=== PATIENT | male | born 1980 ===

== ENCOUNTER 2016-08-10 03:06 | Emergency (ER) | payer MEDICAID ==
[2016-08-10 03:11] VITALS: BP 147/86; PULSE 78; RESP 18; TEMP 97.8; O2SAT 98
[2016-08-10 03:13] VITALS: BMI 28.5
[2016-08-10] MEDS ORDERED: Albuterol-Ipratrop 3 mg / 0.5 (3 ml) UD IH STA ×2 (03:20→03:33)
[2016-08-10] MEDS ORDERED: Albuterol-Ipratrop 3 mg / 0.5 (3 ml) UD ONE (03:24)
--- NOTE | 2016-08-10 03:25 | ED PDOC ---
Arrival/HPI - General Chief Complaint: Shortness Of Breath Time Seen by Provider: 08/10/16 03:14 Historian: Patient - History of Present Illness Narrative History of Present Illness (Text): 08/10/16 03:25 Maurilio Moore is a 36 year old male, whose past medical history includes asthma, who presents to the emergency department complaining of shortness of breath since yesterday. Patient states symptoms are similar in quality to previous asthma symptoms but states he ran out of his asthma medication at home. The patient denies any chest pain, abdominal pain, nausea, vomiting, diarrhea, urinary symptoms, back pain, neck pain, headache, dizziness, or any other complaints. Time/Duration: 24 hours (yesterday) Symptom Onset: Gradual Symptom Course: Unchanged Activities at Onset: Rest, Light Context: Home Past Medical History - Provider Review Nursing Documentation Reviewed: Yes - Past History Past History: No Previous - Infectious Disease Hx of Infectious Diseases: None - Tetanus Immunization Tetanus Immunization: Unknown - Cardiac Hx Cardiac Disorders: No - Pulmonary Hx Asthma: Yes Hx Bronchitis: Yes Hx Chronic Obstructive Pulmonary Disease (COPD): Yes - Neurological Hx Neurological Disorder: No - HEENT Hx HEENT Disorder: No - Renal Hx Renal Disorder: No - Endocrine/Metabolic Hx Endocrine Disorders: No - Hematological/Oncological Hx Blood Disorders: No - Integumentary Hx Dermatological Disorder: No - Musculoskeletal/Rheumatological Hx Musculoskeletal Disorders: No Hx Falls: No - Gastrointestinal Hx Gastrointestinal Disorders: No - Genitourinary/Gynecological Hx Genitourinary Disorders: No - Psychiatric Hx Psychophysiologic Disorder: No Hx Substance Use: No - Surgical History Hx Amputation: No Hx Cardiac Catheterization: No Hx Gastric Bypass Surgery: No Hx Hysterectomy: No Hx Joint Replacement: No Hx Kidney Transplant: No Hx Liver Transplant: No Hx Mastectomy: No Hx Musculoskeletal Surgery: No Hx Open Heart Surgery: No Hx Orthopedic Surgery: No Hx Splenectomy: No Hx Valve Replacement: No Other/Comment: REMOVAL OF KIDNEY STONES - Anesthesia Hx Anesthesia: No Hx Anesthesia Reactions: No Hx Malignant Hyperthermia: No - Suicidal Assessment Feels Threatened In Home Enviroment: No Family/Social History - Physician Review Nursing Documentation Reviewed: Yes Family/Social History: No Known Family HX Smoking Status: Former Smoker Hx Alcohol Use: No Hx Substance Use: No Allergies/Home Meds Allergies/Adverse Reactions: Allergies No Known Allergies Allergy (Verified 05/20/16 19:41) Home Medications: Home Meds Medication Instructions Recorded Confirmed Budesonide/Formoterol Fumarate 1 aer IH DAILY 05/21/16 08/10/16 [Symbicort 160-4.5 Mcg Inhaler] Fluticasone/Salmeterol 100/50 1 dsk IH DAILY 05/21/16 08/10/16 [Advair Diskus 100/50] Prednisone [Deltasone] 1 tab PO DAILY PRN 08/10/16 08/10/16 Review of Systems - Physician Review All systems were reviewed & negative as marked: Yes - Review of Systems Constitutional: Normal Eyes: Normal ENT: Normal Respiratory: SOB. absent: Cough Cardiovascular: Normal. absent: Chest Pain Gastrointestinal: Normal. absent: Abdominal Pain, Diarrhea, Nausea, Vomiting Genitourinary Male: Normal. absent: Dysuria, Frequency, Hematuria, Urinary Output Changes Musculoskeletal: Normal. absent: Back Pain, Neck Pain Skin: Normal. absent: Rash Neurological: Normal. absent: Headache, Dizziness Endocrine: Normal Hemo/Lymphatic: Normal Psychiatric: Normal Physical Exam Vital Signs Reviewed: Yes Vital Signs Temp Pulse Resp BP Pulse Ox 08/10/16 03:10 97.8 F 78 18 147/86 98 Temperature: Afebrile Blood Pressure: Normal Pulse: Regular Respiratory Rate: Normal Appearance: Positive for: Well-Appearing, Non-Toxic, Comfortable Pain Distress: None Mental Status: Positive for: Alert and Oriented X 3 - Systems Exam Head: Present: Atraumatic, Normocephalic Pupils: Present: PERRL Extroacular Muscles: Present: EOMI Conjunctiva: Present: Normal Mouth: Present: Moist Mucous Membranes Neck: Present: Normal Range of Motion Respiratory/Chest: Present: Wheezes (Wheezing bilaterally). No: Respiratory Distress, Accessory Muscle Use Cardiovascular: Present: Regular Rate and Rhythm, Normal S1, S2. No: Murmurs Abdomen: Present: Normal Bowel Sounds. No: Tenderness, Distention, Peritoneal Signs Upper Extremity: Present: Normal Inspection. No: Cyanosis, Edema Lower Extremity: Present: Normal Inspection. No: Edema Neurological: Present: GCS=15, CN II-XII Intact, Speech Normal Skin: Present: Warm, Dry, Normal Color. No: Rashes Psychiatric: Present: Alert, Oriented x 3, Normal Insight, Normal Concentration Medical Decision Making ED Course and Treatment: 08/10/16 03:25 Impression: 36 year old male complaining of shortness of breath since yesterday. Differential Diagnosis included but are not limited to: asthma Plan: -- Duoneb -- Prednisone -- Reassess and disposition Prior Visits: Notes and results from previous visits were reviewed. Progress Notes: 08/10/16 04:20 Reviewed EKG, NSR at [address]-segment elevations or depressions, no T-wave inversions, normal intervals. 08/10/16 05:02 On reevaluation the patient feels better and is in no acute distress. I have discussed the results and plan with the patient, who expresses understanding. Patient given the opportunity to ask question, all questions were answered and there is agreement with the plan to discharge the patient home. Patient is stable for discharge. Patient was instructed to follow up with physician/clinic in 1-2 days or return if symptoms persist/worsen or new concerning symptoms arise. - Medication Orders Current Medication Orders: Discontinued Medications Albuterol/Ipratropium (Duoneb 3 Mg/0.5 Mg (3 Ml) Ud) Confirm Administered Dose 3 ml .ROUTE .STK-MED ONE Stop: 08/10/16 03:25 Albuterol/Ipratropium (Duoneb 3 Mg/0.5 Mg (3 Ml) Ud) 3 ml IH ONCE STA Stop: 08/10/16 03:21 Last Admin: 08/10/16 03:20 Dose: 3 ml Albuterol/Ipratropium (Duoneb 3 Mg/0.5 Mg (3 Ml) Ud) 3 ml IH ONCE STA Stop: 08/10/16 03:34 Prednisone (Prednisone Tab) 60 mg PO ONCE STA Stop: 08/10/16 03:46 - Scribe Statement The provider has reviewed the documentation as recorded by the Lacy He Provider Attestation: All medical record entries made by the Lacy were at my direction and personally dictated by me. I have reviewed the chart and agree that the record accurately reflects my personal performance of the history, physical exam, medical decision making, and the department course for this patient. I have also personally directed, reviewed, and agree with the discharge instructions and disposition. Disposition/Present on Arrival - Present on Arrival Any Indicators Present on Arrival: No History of DVT/PE: No History of Uncontrolled Diabetes: No Urinary Catheter: No History of Decub. Ulcer: No History Surgical Site Infection Following: None - Disposition Have Diagnosis and Disposition been Completed?: Yes Diagnosis: Exacerbation of asthma Disposition: HOME/ ROUTINE Disposition Time: 05:34 Patient Problems: Current Active Problems Problem Status Onset Exacerbation of asthma Acute Condition: GOOD Discharge Instructions (ExitCare): Asthma (ED) Additional Instructions: Take meds as prescribed/follow up with your doctor Prescriptions: Albuterol 0.083% [Albuterol 0.083% Inhal Kianna (2.5 mg/3 ml) UD] 3 ml IH Q4 PRN # 1 pkg PRN Reason: Wheezing predniSONE [Prednisone] 40 mg PO DAILY #10 tab Albuterol HFA [Ventolin HFA 90 mcg/actuation (8 g)] 2 puff IH [id number] PRN #1 puff PRN Reason: Wheezing Cetirizine HCl [Zyrtec] 10 mg PO DAILY PRN #24 tab.rapdis PRN Reason: Allergy Symptoms
--- NOTE | 2016-08-11 15:14 | CARD ---
APPROVED REPORT EKG Measurement Heart [id number] <Conclusion> Normal sinus rhythm with sinus arrhythmia Normal ECG
== END 2016-08-11 07:51 | disposition home or self-care (01) ==
LOC: ED 03:06
DX: J45.901 Unspecified asthma with (acute) exacerbation (principal); Z87.891 Personal history of nicotine dependence

== ENCOUNTER 2016-09-16 07:59 | Emergency (ER) | payer MEDICAID ==
[2016-09-16 08:09] VITALS: BMI 27.3
[2016-09-16 08:27] VITALS: RESP 18; TEMP 98.1
[2016-09-16] MEDS: Albuterol-Ipratrop 3 mg / 0.5 (3 ml) UD IH STA ×2 (08:34→08:35)
--- NOTE | 2016-09-16 08:39 | ED PDOC ---
Arrival/HPI - General Chief Complaint: Shortness Of Breath Time Seen by Provider: 09/16/16 08:26 Historian: Patient - Critical Care Critical Care Minutes: 30 minutes - History of Present Illness Narrative History of Present Illness (Text): 09/16/16 08:40 A 36 year old female, whose past medical history includes asthma, presents to the emergency department complaining of shortness of breath. Patient reports feels identical to previous asthma exacerbating symptoms. Patient denies chest pain, upper respiratory infection, fevers, chills or any other complaints at this time. Symptom Onset: Sudden Symptom Course: Unchanged Activities at Onset: Rest Context: Home Associated Symptoms (Text): none Past Medical History - Provider Review Nursing Documentation Reviewed: Yes - Past History Past History: No Previous - Infectious Disease Hx of Infectious Diseases: None - Tetanus Immunization Tetanus Immunization: Unknown - Cardiac Hx Cardiac Disorders: No - Pulmonary Hx Asthma: Yes Hx Bronchitis: Yes Hx Chronic Obstructive Pulmonary Disease (COPD): Yes - Neurological Hx Neurological Disorder: No - HEENT Hx HEENT Disorder: No - Renal Hx Renal Disorder: No - Endocrine/Metabolic Hx Endocrine Disorders: No - Hematological/Oncological Hx Blood Disorders: No - Integumentary Hx Dermatological Disorder: No - Musculoskeletal/Rheumatological Hx Musculoskeletal Disorders: No Hx Falls: No - Gastrointestinal Hx Gastrointestinal Disorders: No - Genitourinary/Gynecological Hx Genitourinary Disorders: No - Psychiatric Hx Psychophysiologic Disorder: No Hx Substance Use: No - Surgical History Hx Amputation: No Hx Cardiac Catheterization: No Hx Gastric Bypass Surgery: No Hx Hysterectomy: No Hx Joint Replacement: No Hx Kidney Transplant: No Hx Liver Transplant: No Hx Mastectomy: No Hx Musculoskeletal Surgery: No Hx Open Heart Surgery: No Hx Orthopedic Surgery: No Hx Splenectomy: No Hx Valve Replacement: No Other/Comment: REMOVAL OF KIDNEY STONES - Anesthesia Hx Anesthesia: No Hx Anesthesia Reactions: No Hx Malignant Hyperthermia: No - Suicidal Assessment Feels Threatened In Home Enviroment: No Family/Social History - Physician Review Nursing Documentation Reviewed: Yes Family/Social History: No Known Family HX Smoking Status: Former Smoker Hx Alcohol Use: Yes Frequency of alcohol use: Socially Hx Substance Use: No Allergies/Home Meds Allergies/Adverse Reactions: Allergies No Known Allergies Allergy (Verified 05/20/16 19:41) Home Medications: Home Meds Medication Instructions Recorded Confirmed Budesonide/Formoterol Fumarate 1 aer IH DAILY 05/21/16 09/16/16 [Symbicort 160-4.5 Mcg Inhaler] Fluticasone/Salmeterol 100/50 1 dsk IH DAILY 05/21/16 09/16/16 [Advair Diskus 100/50] Prednisone [Deltasone] 1 tab PO DAILY PRN 08/10/16 09/16/16 Review of Systems - Physician Review All systems were reviewed & negative as marked: Yes Physical Exam - Physical Exam Narrative Physical Exam (Text): 09/16/16 08:37- Review of Systems Constitutional: Normal. absent: Fatigue, Weight Change, Fevers, chills Eyes: Normal ENT: Normal Respiratory: Present: shortness of breath absent: Cough, Sputum Cardiovascular: Normal absent: Chest pain, Palpitations, Syncope Gastrointestinal: Normal absent: Abdominal pain, Diarrhea, Nausea, Vomiting Genitourinary: Normal. absent: Dysuria, Frequency, Hematuria Musculoskeletal: Normal. absent: Arthralgias, Back Pain, Neck Pain Skin: Normal Neurological: Normal absent: Focal Weakness Endocrine: Normal Hemo/Lymphatic: Normal Psychiatric: Normal - Physical exam Patient appears age appropriate, speaking full sentences without difficulty - Systems Exam Head: Present: Atraumatic, Normocephalic Pupils: Present: PERRL Extraocular Muscles: Present: EOMI Conjunctiva: Present: Normal Mouth: Present: Moist Mucous Membranes Neck: Present: Normal Range of Motion. No: MIDLINE TENDERNESS, Paraspinal Tenderness Respiratory/Chest: Present: Expiratory wheezing No: Accessory Muscle Use, Tachypnic Cardiovascular: Present: Regular Rate and Rhythm, Normal S1, S2, Peripheral Pulses Present. No: Murmurs Abdomen: Present: Normal Bowel Sounds, No: Tenderness, Peritoneal Signs, Rebound, Guarding, Distention Back: Present: Normal Inspection. No: Midline Tenderness, Paraspinal Tenderness Upper Extremity: Present: Normal Inspection. No: Cyanosis, Edema Lower Extremity: Present: Normal Inspection. No: Edema Neurological: Present: GCS=15, Speech Normal, cranial nerves II through XII fully intact with no cerebellar abnormality, neuro-sensory fully intact. No focal neurological deficits. Skin: Present: Warm, Dry, Normal Color. No: Rashes Lymphatic: Present: OX3, NI, NC Psychiatric: Present: Alert, Oriented x 3, Normal Insight, Normal Concentration Vital Signs Reviewed: Yes Vital Signs Temp Pulse Resp BP Pulse Ox 09/16/16 10:18 77 18 119/64 100 09/16/16 08:23 98.1 F 82 18 118/86 99 Temperature: Afebrile Blood Pressure: Normal Pulse: Regular Respiratory Rate: Normal Appearance: Positive for: Well-Appearing, Non-Toxic, Comfortable Pain Distress: None Mental Status: Positive for: Alert and Oriented X 3 Medical Decision Making ED Course and Treatment: 09/16/16 08:35 Impression: A 36 year old male with shortness of breath. On physical exam, expiratory wheezing on examination Differential Diagnosis included but are not limited to: asthma Plan: -- Duoneb, Predisone -- Reassess and disposition Prior Visits: Notes and results from previous visits were reviewed. Patient last reported to the emergency department on 08/10/16 for evaluation of shortness of breath. Progress Notes: 09/16/16 10:02 on reevaluation, lungs clear to auscultation bilaterally. No shortness of breath or wheezing. 09/16/16 10:27 Patient states that he feels comfortable being discharged home with outpatient follow-up. Patient states that he has an inhaler at home and also has a nebulizer refills. Will be given prednisone prescription. Patient's lungs clear to auscultation bilaterally on reexamination, patient has no cough, patient has no fever. No indication to discharge on antibiotics at this time. Patient again states that he feels comfortable being discharged home at this time Pt states he understands to return to the ER right away for new or worsening symptoms or for inability to f/u with PMD or specialist as instructed. Patient states that he fully agrees with and understands discharge instructions. States that he agrees with the plan and disposition. Verbalized and repeated discharge instructions and plan. I have given the patient opportunity to ask any additional questions. - Medication Orders Current Medication Orders: Discontinued Medications Albuterol/Ipratropium (Duoneb 3 Mg/0.5 Mg (3 Ml) Ud) 3 ml IH STAT STA Stop: 09/16/16 08:33 Last Admin: 09/16/16 08:35 Dose: 3 ml Prednisone (Prednisone Tab) 60 mg PO STAT ONE Stop: 09/16/16 08:33 Last Admin: 09/16/16 09:15 Dose: 60 mg - Scribe Statement The provider has reviewed the documentation as recorded by the Lacy Klein Provider Scribe Attestation: All medical record entries made by the Scribe were at my direction and personally dictated by me. I have reviewed the chart and agree that the record accurately reflects my personal performance of the history, physical exam, medical decision making, and the department course for this patient. I have also personally directed, reviewed, and agree with the discharge instructions and disposition. Disposition/Present on Arrival - Present on Arrival Any Indicators Present on Arrival: No History of DVT/PE: No History of Uncontrolled Diabetes: No Urinary Catheter: No History of Decub. Ulcer: No History Surgical Site Infection Following: None - Disposition Have Diagnosis and Disposition been Completed?: Yes Diagnosis: Exacerbation of asthma Disposition: HOME/ ROUTINE Disposition Time: 10:29 Patient Plan: Discharge Patient Problems: Current Active Problems Problem Status Onset Exacerbation of asthma Acute Condition: GOOD Discharge Instructions (ExitCare): Asthma (ED) Additional Instructions: PLEASE RETURN TO THE EMERGENCY DEPARTMENT FOR NEW OR WORSENING SYMPTOMS. RETURN RIGHT AWAY IF YOU CANNOT FOLLOW UP WITH YOUR PRIMARY CARE DOCTOR, CLINIC, OR SPECIALIST IN 1-2 DAYS. Prescriptions: Albuterol HFA [Ventolin HFA 90 mcg/actuation (8 g)] 2 puff IH [id number] PRN #1 inhaler PRN Reason: Shortness Of Breath Albuterol HFA [Ventolin HFA 90 mcg/actuation (8 g)] 2 puff IH Q4 #1 puff predniSONE [predniSONE Tab] 60 mg PO DAILY #12 tab Referrals: Blas Lindsey MD [Primary Care Provider] - Follow up with primary Forms: WORK NOTE
[2016-09-16 10:18] VITALS: BP 119/64; PULSE 77; O2SAT 100
== END 2016-09-16 11:07 | disposition home or self-care (01) ==
LOC: ED 07:59
DX: J45.901 Unspecified asthma with (acute) exacerbation (principal); Z87.891 Personal history of nicotine dependence

== ENCOUNTER 2016-12-19 11:51 | Emergency (ER) | payer MEDICAID ==
[2016-12-19 11:55] VITALS: BMI 29.3
[2016-12-19 11:58] VITALS: TEMP 99.1
--- NOTE | 2016-12-19 13:14 | RAD ---
PROCEDURE: Radiographs of the Lumbar Spine. HISTORY: r/o fx COMPARISON: No prior. FINDINGS: BONES: Normal alignment. No listhesis. No fracture. DISC SPACES: Unremarkable. OTHER FINDINGS: None. IMPRESSION: Unremarkable radiographs of the lumbar spine.
[2016-12-19 14:02] VITALS: BP 120/78; PULSE 73; RESP 17; O2SAT 100
--- NOTE | 2016-12-19 15:41 | ED PDOC ---
Arrival/HPI - General Chief Complaint: Back Pain Time Seen by Provider: 12/19/16 12:01 Historian: Patient - History of Present Illness Narrative History of Present Illness (Text): 12/19/16 12:19 A 36 year old male, whose past medical history includes asthma, presents to the emergency department complaining of lower back pain since yesterday. Patient reports he was heavy lifting, causing the back pain. He states having taken Tylenol, but has had no relief. Patient denies of any urinary output changes or any other complaints. No PMD Time/Duration: 24 hours Symptom Onset: Sudden Symptom Course: Unchanged Past Medical History - Provider Review Nursing Documentation Reviewed: Yes - Past History Past History: No Previous - Infectious Disease Hx of Infectious Diseases: None - Tetanus Immunization Tetanus Immunization: Unknown - Cardiac Hx Cardiac Disorders: No - Pulmonary Hx Asthma: Yes Hx Bronchitis: Yes Hx Chronic Obstructive Pulmonary Disease (COPD): Yes - Neurological Hx Neurological Disorder: No - HEENT Hx HEENT Disorder: No - Renal Hx Renal Disorder: No - Endocrine/Metabolic Hx Endocrine Disorders: No - Hematological/Oncological Hx Blood Disorders: No - Integumentary Hx Dermatological Disorder: No - Musculoskeletal/Rheumatological Hx Musculoskeletal Disorders: No Hx Falls: No - Gastrointestinal Hx Gastrointestinal Disorders: No - Genitourinary/Gynecological Hx Genitourinary Disorders: No - Psychiatric Hx Psychophysiologic Disorder: No Hx Substance Use: No - Surgical History Hx Amputation: No Hx Cardiac Catheterization: No Hx Gastric Bypass Surgery: No Hx Hysterectomy: No Hx Joint Replacement: No Hx Kidney Transplant: No Hx Liver Transplant: No Hx Mastectomy: No Hx Musculoskeletal Surgery: No Hx Open Heart Surgery: No Hx Orthopedic Surgery: No Hx Splenectomy: No Hx Valve Replacement: No Other/Comment: REMOVAL OF KIDNEY STONES - Anesthesia Hx Anesthesia: No Hx Anesthesia Reactions: No Hx Malignant Hyperthermia: No - Suicidal Assessment Feels Threatened In Home Enviroment: No Family/Social History - Physician Review Nursing Documentation Reviewed: Yes Family/Social History: No Known Family HX Smoking Status: Former Smoker Hx Alcohol Use: Yes Hx Substance Use: No Allergies/Home Meds Allergies/Adverse Reactions: Allergies No Known Allergies Allergy (Verified 05/20/16 19:41) Review of Systems - Physician Review All systems were reviewed & negative as marked: Yes - Review of Systems Genitourinary Male: absent: Urinary Output Changes Musculoskeletal: Back Pain (lower back pain) Physical Exam Vital Signs Reviewed: Yes Vital Signs Temp Pulse Resp BP Pulse Ox 12/19/16 14:01 73 17 120/78 100 12/19/16 11:51 99.1 F 77 18 122/80 97 Temperature: Afebrile Blood Pressure: Normal Pulse: Regular Respiratory Rate: Normal Appearance: Positive for: Well-Appearing, Non-Toxic, Comfortable Pain Distress: None Mental Status: Positive for: Alert and Oriented X 3 - Systems Exam Head: Present: Atraumatic, Normocephalic Pupils: Present: PERRL Extroacular Muscles: Present: EOMI Conjunctiva: Present: Normal Mouth: Present: Moist Mucous Membranes Neck: Present: Normal Range of Motion Respiratory/Chest: Present: Clear to Auscultation, Good Air Exchange. No: Respiratory Distress, Accessory Muscle Use Cardiovascular: Present: Regular Rate and Rhythm, Normal S1, S2. No: Murmurs Abdomen: Present: Normal Bowel Sounds. No: Tenderness, Distention, Peritoneal Signs Back: Present: Normal Inspection Upper Extremity: Present: Normal Inspection. No: Cyanosis, Edema Lower Extremity: Present: Normal Inspection. No: Edema Neurological: Present: GCS=15, CN II-XII Intact, Speech Normal Skin: Present: Warm, Dry, Normal Color. No: Rashes Psychiatric: Present: Alert, Oriented x 3, Normal Insight, Normal Concentration Medical Decision Making ED Course and Treatment: 12/19/16 12:25 Impression: 36 year old male with lower back pain. Physical exam is unremarkable. Plan: -- Lumbar Spine X-Ray -- Flexeril -- Motrin -- Reassess and disposition Prior Visits: Notes and results from previous visits were reviewed. On 09/16/2016 patient came in complaining of shortness of breath. Patient was discharged home. Progress Notes: 12/19/2016 13:12 Lumbar Spine X-Ray FINDINGS: BONES: Normal alignment. No listhesis. No fracture. DISC SPACES: Unremarkable. OTHER FINDINGS: None. IMPRESSION: Unremarkable radiographs of the lumbar spine. Dictator : Chun Rahman MD 12/19/16 14:04 On re-evaluation, patient feels better and is in no acute distress. I have discussed the results and plan with the patient, who expresses understanding. Patient in agreement with plan to be discharged home. Patient is stable for discharge. Patient was instructed to follow up with PMD or return if symptoms worsen or new concerning symptoms arise. - RAD Interpretation Radiology Orders: 12/19/16 12:25 LS SPINE WITH OBL > 18 YRS OLD [RAD] Stat - Medication Orders Current Medication Orders: Discontinued Medications Cyclobenzaprine HCl (Flexeril) 10 mg PO STAT STA Stop: 12/19/16 12:26 Last Admin: 12/19/16 12:44 Dose: 10 mg Ibuprofen (Motrin Tab) 600 mg PO STAT STA Stop: 12/19/16 12:26 Last Admin: 12/19/16 12:45 Dose: 600 mg - Scribe Statement The provider has reviewed the documentation as recorded by the Lacy Easton Provider Scribe Attestation: All medical record entries made by the Leoncioibsalomon were at my direction and personally dictated by me. I have reviewed the chart and agree that the record accurately reflects my personal performance of the history, physical exam, medical decision making, and the department course for this patient. I have also personally directed, reviewed, and agree with the discharge instructions and disposition. Disposition/Present on Arrival - Present on Arrival Any Indicators Present on Arrival: No History of DVT/PE: No History of Uncontrolled Diabetes: No Urinary Catheter: No History of Decub. Ulcer: No History Surgical Site Infection Following: None - Disposition Have Diagnosis and Disposition been Completed?: Yes Diagnosis: Acute low back pain Disposition: HOME/ ROUTINE Disposition Time: 13:10 Condition: IMPROVED Discharge Instructions (ExitCare): Acute Low Back Pain (ED) Additional Instructions: Thank you for letting us take care of you today. Your provider was Dr. Lawson. You were treated for low back pain. The emergency medical care you received today was directed at your acute symptoms. If you were prescribed any medication, please fill it and take as directed. It may take several days for your symptoms to resolve. Return to the Emergency Department if your symptoms worsen, do not improve, or if you have any other problems. Please contact your doctor or call one of the physicians/clinics you have been referred to that are listed on the Patient Visit Information form that is included in your discharge packet. Bring any paperwork you were given at discharge with you along with any medications you are taking to your follow up visit. Our treatment cannot replace ongoing medical care by a primary care provider (PCP) outside of the emergency department. Thank you for allowing the [facility] team to be part of your care today. Follow up with your doctor in 2-3 days for re-evaluation and further management. Prescriptions: Cyclobenzaprine [Cyclobenzaprine HCl] 10 mg PO Q8 PRN #20 tab PRN Reason: Muscle Spasm Ibuprofen [Motrin] 600 mg PO Q6 PRN #20 tab PRN Reason: Pain, Moderate (4-7) Referrals: PCP,NO [Primary Care Provider] - Follow up with primary Forms: [employer] (Malay)
== END 2016-12-19 14:04 | disposition home or self-care (01) ==
LOC: ED 11:51
DX: M54.5 Low back pain (principal)

== ENCOUNTER 2017-01-07 19:46 | Observation (INO) | payer MEDICAID ==
[2017-01-07 19:46] VITALS: BMI 29.3
[2017-01-07] MEDS ORDERED: Albuterol 0.5% Inhal Sol (5 mg/ ml) 20 ml IH STA (20:26)
[2017-01-07] MEDS ORDERED: Albuterol 0.5% Inhal Sol (2.5 mg/0.5 ml) UD IH STA (20:48)
[2017-01-07] MEDS ORDERED: Albuterol 0.083% Inhal Sol (2.5 mg/3 mL) UD ONE (20:51)
--- NOTE | 2017-01-07 21:10 | ED PDOC ---
Arrival/HPI - General Chief Complaint: Respiratory Distress Time Seen by Provider: 01/07/17 19:52 Historian: Patient - History of Present Illness Narrative History of Present Illness (Text): 01/07/17 21:07 36-year-old male with a long history of chronic asthma. He presents with 2 days of severe shortness of breath and wheezing. States she's been using his inhaler quite frequently multiple times a day in fact he's gone through approximately 90 doses since refilling his prescription on Thursday. His last admission for asthma was in September of this year. has no history of intubations. He does use an Advair and at times uses a steroid burst at home. He does not smoke. He's had some chills but no fever no nausea or vomiting. 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 He does not have a wooden frame builder currently only seen one in the past he is trying to follow up with one. Time/Duration: Other (2 days) Symptom Onset: Sudden Symptom Course: Unchanged Activities at Onset: Rest Context: Home Past Medical History - Provider Review Nursing Documentation Reviewed: Yes - Travel History Have you recently traveled outside [place] w/in the past 3 mons?: No - Past History Past History: No Previous - Infectious Disease Hx of Infectious Diseases: None - Tetanus Immunization Tetanus Immunization: Unknown - Cardiac Hx Cardiac Disorders: No - Pulmonary Hx Asthma: Yes Hx Bronchitis: Yes Hx Chronic Obstructive Pulmonary Disease (COPD): Yes - Neurological Hx Neurological Disorder: No - HEENT Hx HEENT Disorder: No - Renal Hx Renal Disorder: No - Endocrine/Metabolic Hx Endocrine Disorders: No - Hematological/Oncological Hx Blood Disorders: No - Integumentary Hx Dermatological Disorder: No - Musculoskeletal/Rheumatological Hx Musculoskeletal Disorders: No Hx Falls: No - Gastrointestinal Hx Gastrointestinal Disorders: No - Genitourinary/Gynecological Hx Genitourinary Disorders: No - Psychiatric Hx Psychophysiologic Disorder: No Hx Substance Use: No - Surgical History Hx Amputation: No Hx Cardiac Catheterization: No Hx Gastric Bypass Surgery: No Hx Hysterectomy: No Hx Joint Replacement: No Hx Kidney Transplant: No Hx Liver Transplant: No Hx Mastectomy: No Hx Musculoskeletal Surgery: No Hx Open Heart Surgery: No Hx Orthopedic Surgery: No Hx Splenectomy: No Hx Valve Replacement: No Other/Comment: REMOVAL OF KIDNEY STONES - Anesthesia Hx Anesthesia: No Hx Anesthesia Reactions: No Hx Malignant Hyperthermia: No - Suicidal Assessment Feels Threatened In Home Enviroment: No Family/Social History - Physician Review Nursing Documentation Reviewed: Yes Family/Social History: Unknown Family HX Smoking Status: Former Smoker Hx Alcohol Use: Yes Hx Substance Use: No Allergies/Home Meds Allergies/Adverse Reactions: Allergies No Known Allergies Allergy (Verified 05/20/16 19:41) Review of Systems - Review of Systems Constitutional: absent: Fevers, Night Sweats ENT: Rhinorrhea Respiratory: SOB, Cough, Sputum, Wheezing Cardiovascular: JUÁREZ. absent: Chest Pain Gastrointestinal: Normal Musculoskeletal: Normal Skin: Normal Neurological: Normal Physical Exam Vital Signs Reviewed: Yes Vital Signs Temp Pulse Resp BP Pulse Ox 01/07/17 23:35 82 18 126/74 100 01/07/17 19:53 98.2 F 103 H 20 129/78 96 01/07/17 19:46 24 Temperature: Afebrile Blood Pressure: Normal Pulse: Tachycardic Respiratory Rate: Tachypneic Appearance: Positive for: Well-Appearing Pain Distress: None Mental Status: Positive for: Alert and Oriented X 3 - Systems Exam Head: Present: Atraumatic Pupils: Present: PERRL Extroacular Muscles: Present: EOMI Conjunctiva: Present: Normal Mouth: Present: Moist Mucous Membranes Nose (External): Present: Atraumatic Nose (Internal): Present: Normal Inspection, Rhinorrhea Neck: Present: Normal Range of Motion, Lymphadenopathy Respiratory/Chest: Present: Wheezes, Decreased Breath Sounds Cardiovascular: Present: Regular Rate and Rhythm, Normal S1, S2 Back: Present: Normal Inspection Lower Extremity: Present: Normal Inspection Neurological: Present: GCS=15, Motor Func Grossly Intact Skin: Present: Warm, Dry, Rashes Psychiatric: Present: Alert, Oriented x 3 Medical Decision Making ED Course and Treatment: 01/07/17 21:11 Impression: 36-year-old male long history of asthma presenting for asthma exacerbation. Plan: -- Albuterol, Zithromax, Prednisone -- Reassess and disposition Prior Visits: Notes and results from previous visits were reviewed. Patient last reported to the emergency department on 12/19/16 for evaluation of lower back pain. Progress Notes: 01/07/17 22:40 Patient has a history of severe asthma, utilizing alberteol. Patient will be admitted to hospital for asthmatic bronchitis for high risk of decompensation. Patient symptoms slightly improved after 7.5 mg nebulizer treatment and 60 prednisone, but not resolved. I have discussed the results and plan with the patient, who expresses understanding. Patient given the opportunity to ask question, all questions were answered and there is agreement with the plan to be admitted to the hospital. - RAD Interpretation Radiology Orders: 01/07/17 22:48 CHEST TWO VIEWS (PA/LAT) [RAD] Stat - Medication Orders Current Medication Orders: Albuterol Sulfate (Albuterol 0.5% Inhal Kianna (2.5 Mg/0.5 Ml) Ud) 2.5 mg IH [id number] [facility] Last Admin: 01/08/17 01:34 Dose: 2.5 mg Albuterol Sulfate (Albuterol 0.5% Inhal Kianna (2.5 Mg/0.5 Ml) Ud) 2.5 mg IH Q2 PRN PRN Reason: Shortness of Breath Famotidine (Pepcid) 20 mg PO 1000,2200 RACHEAL Sodium Chloride (Sodium Chloride 0.9%) 1,000 mls @ 100 mls/hr IV .Q10H [facility] Last Admin: 01/08/17 01:52 Dose: 100 mls/hr eMAR Start Stop Document 01/08/17 01:52 [facility] (Rec: 01/08/17 01:53 [id number]) Intravenous Solution Start Date 01/08/17 Start Time 01:52 Azithromycin (Zithromax 500mg In Ns) 500 mg in 250 mls @ 167 mls/hr IVPB DAILY RACHEAL PRN Reason: Protocol Methylprednisolone (Solu-Medrol) 60 mg IVP Q8 RACHEAL Ondansetron HCl (Zofran Tab) 4 mg PO Q6 PRN PRN Reason: Nausea/Vomiting Discontinued Medications Albuterol Sulfate (Albuterol 0.5% Inhal Kianna (2.5 Mg/0.5 Ml) Ud) 2.5 mg IH STAT STA Stop: 01/07/17 20:49 Last Admin: 01/07/17 20:51 Dose: 2.5 mg Albuterol/Ipratropium (Duoneb 3 Mg/0.5 Mg (3 Ml) Ud) 3 ml IH Q15M RACHEAL Stop: 01/08/17 01:16 Azithromycin (Zithromax) 500 mg PO STAT STA PRN Reason: Protocol Stop: 01/07/17 20:32 Last Admin: 01/07/17 20:52 Dose: 500 mg Sodium Chloride (Sodium Chloride 0.9%) 1,000 mls @ 999 mls/hr IV .Q1H1M STA Stop: 01/07/17 23:31 Last Admin: 01/07/17 23:16 Dose: 999 mls/hr eMAR Start Stop Document 01/07/17 23:16 RALPH (Rec: 01/07/17 23:16 [id number]) Intravenous Solution Start Date 01/07/17 Start Time 23:16 End Date 01/08/17 End time 23:16 Total Infusion Time 1440 Magnesium Sulfate/Dextrose (Magnesium Sulfate 1 Gm/100 Ml D5w) 1 gm in 100 mls @ 100 mls/hr IVPB ONCE ONE Stop: 01/07/17 23:30 Last Admin: 01/07/17 23:15 Dose: 100 mls/hr eMAR Start Stop Document 01/07/17 23:15 RALPH (Rec: 01/07/17 23:15 RALPH [id number]) Intravenous Solution Start Date 01/07/17 Start Time 23:15 End Date 01/08/17 End time 00:15 Total Infusion Time 60 Loratadine (Claritin) 10 mg PO STAT STA Stop: 01/08/17 00:30 Last Admin: 01/08/17 01:58 Dose: 10 mg Prednisone (Prednisone Tab) 60 mg PO STAT ONE Stop: 01/07/17 20:22 Last Admin: 01/07/17 20:51 Dose: 60 mg Disposition/Present on Arrival - Present on Arrival Any Indicators Present on Arrival: No History of DVT/PE: No History of Uncontrolled Diabetes: No Urinary Catheter: No History of Decub. Ulcer: No History Surgical Site Infection Following: None - Disposition Have Diagnosis and Disposition been Completed?: Yes Diagnosis: Asthmatic bronchitis with acute exacerbation, Exacerbation of asthma, Acute upper respiratory infection Disposition: HOSPITALIZED Disposition Time: 23:00 Patient Plan: Observation Patient Problems: Current Active Problems Problem Status Onset Acute upper respiratory infection Acute Asthmatic bronchitis with acute exacerbation Acute Exacerbation of asthma Acute Condition: GUARDED
[2017-01-07] MEDS ORDERED: Magnesium Sulfate 1 gm in D5W 1 GM/100 ML BAG IVPB ONE (22:31)
[2017-01-07] MEDS ORDERED: Sodium Chloride 0.9% 1,000 ML IV STA (22:31)
[2017-01-07 23:29] LABS: BASO # 0.02 K/mm3 (0.0-2.0); BASO % 0.1 % (0.0-3.0); EOS # 0.3 (0.0-0.7); EOS % 1.9 % (1.5-5.0); GRAN # 11.94 (1.4-6.5); GRAN % 85.2 % (50.0-68.0); HEMATOCRIT 40.9 % (42.0-52.0); LYMPH # 1.2 (1.2-3.4); LYMPH % 8.5 % (22.0-35.0); MEAN CELL VOLUME 81.8 fl (80.0-105.0); MEAN CORPUSCULAR HEMOGLOBIN 28.4 pg (25.0-35.0); MEAN CORPUSCULAR HGB CONC 34.7 g/dl (31.0-37.0); MEAN PLATELET VOLUME 9.8 fl (7.0-11.0); MONO # 0.6 (0.1-0.6); MONO % 4.3 % (1.0-6.0); RED CELL DISTRIBUTION WIDTH 13.1 % (11.5-14.5)
[2017-01-07 23:37] LABS: BLOOD UREA NITROGEN 11 mg/dL (7-21); CALCIUM 9.4 mg/dL (8.4-10.5); CARBON DIOXIDE 23 mmol/L (21-33); CHLORIDE 103 mmol/L (98-107); GFR AFRICAN-AMERICAN > 60; GLUCOSE,RANDOM 118 mg/dL (70-110); SODIUM 138 mmol/L (132-148)
[2017-01-08] MEDS ORDERED: Sodium Chloride 0.9% 1,000 ML IV SCH (00:15)
[2017-01-08] MEDS ORDERED: Albuterol 0.5% Inhal Sol (2.5 mg/0.5 ml) UD IH PRN (00:33)
[2017-01-08] MEDS ORDERED: Albuterol-Ipratrop 3 mg / 0.5 (3 ml) UD IH SCH (00:45)
[2017-01-08] MEDS: Albuterol 0.5% Inhal Sol (2.5 mg/0.5 ml) UD IH SCH ×3 (01:34→14:54)
--- NOTE | 2017-01-08 05:41 | CP.PCM.HP ---
History of Present Illness - History of Present Illness History of Present Illness: Chief Complaint Shortness of breath HPI Patient is a 36 year old male with a history of poorly controlled asthma with no prior intubations who presents to the [facility] ED 01/07/17 with complains of shortness of breath. 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 He states that later he started feeling ill and began to have a productive cough producing yellow sputum. Since dust exposure at work patient was using his nebulizer which did not alleviate his shortness of breath. States he used over one hundred pumps but after no relief decided to come to the ED. Patient states walking short distances exacerbates his shortness of breath however he feels fine if he is sitting up and not exerting any energy. Patient states he was referred to a education sales consultant by his PMD for further evaluation, but has not been able to take time off to make an appointment as of yet. Patient admits to headache and nausea. Denies vomiting, abdominal pain, chest pain, dizziness, weakness. PMD: Dr. Felix Allergies: Dust, NKDA Family history: non-contributory Social history: history of tobacco use, denies alcohol and illicit drugs Medications: Albuterol HFA 2 puff IH Q4, Albuteril HFA 2 puff IH q6, Albuterol 3ml IH q4 PRN, cyclobenzaprine, Ibuprofen Present on Admission - Present on Admission Any Indicators Present on Admission: No Review of Systems - Review of Systems Systems not reviewed;Unavailable: Acuity of Condition - Constitutional Constitutional: Chills, Headache - EENT Eyes: absent: Blurred Vision, Change in Vision Ears: absent: Decreased Hearing, Ear Discharge - Cardiovascular Cardiovascular: Diaphoresis, Dyspnea, Dyspnea on Exertion. absent: Chest Pain - Respiratory Respiratory: Dyspnea, Dyspnea on Exertion, Wheezing - Gastrointestinal Gastrointestinal: absent: Abdominal Pain, Nausea, Vomiting - Genitourinary Genitourinary: absent: Change in Urinary Stream, Dysuria - Musculoskeletal Musculoskeletal: absent: Arthralgias, Back Pain - Integumentary Integumentary: absent: Change in Nails, Change in Pigmentation - Neurological Neurological: absent: Abnormal Gait, Abnormal Hearing - Psychiatric Psychiatric: absent: Anxiety, Auditory Hallucinations Past Patient History - Infectious Disease Hx of Infectious Diseases: None - Tetanus Immunizations Tetanus Immunization: Unknown - Past Social History Smoking Status: Former Smoker - CARDIAC Hx Cardiac Disorders: No - PULMONARY Hx Asthma: Yes Hx Bronchitis: Yes Hx Chronic Obstructive Pulmonary Disease (COPD): Yes - NEUROLOGICAL Hx Neurological Disorder: No - HEENT Hx HEENT Problems: No - RENAL Hx Chronic Kidney Disease: No - ENDOCRINE/METABOLIC Hx Endocrine Disorders: No - HEMATOLOGICAL/ONCOLOGICAL Hx Blood Disorders: No - INTEGUMENTARY Hx Dermatological Problems: No - MUSCULOSKELETAL/RHEUMATOLOGICAL Hx Musculoskeletal Disorders: No Hx Falls: No - GASTROINTESTINAL Hx Gastrointestinal Disorders: No - GENITOURINARY/GYNECOLOGICAL Hx Genitourinary Disorders: No - PSYCHIATRIC Hx Psychophysiologic Disorder: No Hx Substance Use: No - SURGICAL HISTORY Hx Amputation: No Hx Cardiac Catheterization: No Hx Gastric Bypass Surgery: No Hx Hysterectomy: No Hx Joint Replacement: No Hx Kidney Transplant: No Hx Liver Transplant: No Hx Mastectomy: No Hx Musculoskeletal Surgery: No Hx Open Heart Surgery: No Hx Orthopedic Surgery: No Hx Splenectomy: No Hx Valve Replacement: No Other/Comment: REMOVAL OF KIDNEY STONES - ANESTHESIA Hx Anesthesia: No Hx Anesthesia Reactions: No Hx Malignant Hyperthermia: No Meds Home Medications: Home Medication List Medication Instructions Recorded Confirmed Type predniSONE [predniSONE Tab] 60 mg PO DAILY #12 tab 01/07/17 Rx Allergies/Adverse Reactions: Allergies Allergy/AdvReac Type Severity Reaction Status Date / Time No Known Allergies Allergy Verified 05/20/16 19:41 Physical Exam - Constitutional Appears: Non-toxic - Head Exam Head Exam: ATRAUMATIC, NORMAL INSPECTION, NORMOCEPHALIC - Eye Exam Eye Exam: EOMI, Normal appearance - ENT Exam ENT Exam: Mucous Membranes Moist, Normal Exam - Respiratory Exam Respiratory Exam: Wheezes (B/L upper and lower lobes). absent: Clear to Auscultation Bilateral, Rhonchi, NORMAL BREATHING PATTERN - Cardiovascular Exam Cardiovascular Exam: REGULAR RHYTHM, +S1, +S2 - GI/Abdominal Exam GI & Abdominal Exam: Normal Bowel Sounds, Soft - Back Exam Back exam: NORMAL INSPECTION - Neurological Exam Neurological exam: Alert, CN II-XII Intact, Oriented x3 - Psychiatric Exam Psychiatric exam: Normal Affect, Normal Mood - Skin Skin Exam: Normal Color, Warm Results - Vital Signs Recent Vital Signs: Last Vital Signs Temp 99.7 F H 01/08/17 00:49 Pulse 105 H 01/08/17 01:35 Resp 22 01/08/17 00:49 BP 128/97 H 01/08/17 00:49 Pulse Ox 100 01/07/17 23:35 - Labs Result Diagrams: 01/07/17 23:17 01/07/17 23:17 Labs: Laboratory Results - last 24 hr 01/07/17 01/07/17 23:17 23:17 WBC 14.0 H D RBC 5.00 Hgb 14.2 Hct 40.9 L MCV 81.8 MCH 28.4 MCHC 34.7 RDW 13.1 Plt Count 203 MPV 9.8 Gran % 85.2 H Lymph % (Auto) 8.5 L [place] % (Auto) 4.3 Eos % (Auto) 1.9 Baso % (Auto) 0.1 Gran # 11.94 H Lymph # 1.2 [place] # 0.6 Eos # 0.3 Baso # 0.02 Sodium 138 Potassium 4.0 Chloride 103 Carbon Dioxide 23 Anion Gap 16 BUN 11 Creatinine 1.0 Est GFR ( Amer) > 60 Est GFR (Non-Af Amer) > 60 Random Glucose 118 H Calcium 9.4 Assessment & Plan - Assessment and Plan (Free Text) Plan: Assessment 36 year old male with history of poorly controlled asthma presenting with shortness of breath Plan 1. Asthma Exacerbation - Duonebs q6 - Albuterol q2 - Solumedrol 60 mg q8 2. Allergic Rhinitis - Claritin qD 3. Acute Bronchitis - WBC 14.0 - Azithromycin 2. Nausea - Zofran DVT/GI prophylaxis - SCDs/Pepcid
[2017-01-08] MEDS ORDERED: MethylPREDNISolone 40 mg Vial IVP SCH (06:00)
[2017-01-08 06:43] LABS: BASO # 0.01 K/mm3 (0.0-2.0); BASO % 0.1 % (0.0-3.0); GRAN # 12.37 (1.4-6.5); GRAN % 83.7 % (50.0-68.0); HEMATOCRIT 39.4 % (42.0-52.0); LYMPH # 1.6 (1.2-3.4); MEAN CELL VOLUME 82.3 fl (80.0-105.0); MEAN CORPUSCULAR HEMOGLOBIN 28.2 pg (25.0-35.0); MEAN CORPUSCULAR HGB CONC 34.3 g/dl (31.0-37.0); MEAN PLATELET VOLUME 9.7 fl (7.0-11.0); MONO # 0.8 (0.1-0.6); MONO % 5.2 % (1.0-6.0); RED CELL DISTRIBUTION WIDTH 13.3 % (11.5-14.5); WHITE BLOOD COUNT 14.8 10^3/ul (4.5-11.0)
[2017-01-08 06:53] LABS: BLOOD UREA NITROGEN 10 mg/dL (7-21); CALCIUM 9.3 mg/dL (8.4-10.5); CARBON DIOXIDE 23 mmol/L (21-33); CHLORIDE 105 mmol/L (95-110); GFR AFRICAN-AMERICAN > 60; GLUCOSE,RANDOM 166 mg/dL (70-110); POTASSIUM 4.3 mmol/L (3.6-5.0); SODIUM 139 mmol/L (132-148)
[2017-01-08 08:34] VITALS: BP 126/75; PULSE 83; RESP 18; TEMP 98.3; O2SAT 95
--- NOTE | 2017-01-08 08:35 | RAD ---
HISTORY: Shortness of breath COMPARISON: 05/20/2016. TECHNIQUE: Chest PA and lateral FINDINGS: LUNGS: The lungs are well inflated and clear. PLEURA: No significant pleural effusion identified. No pneumothorax apparent. CARDIOVASCULAR: Normal. OSSEOUS STRUCTURES: No significant abnormalities. VISUALIZED UPPER ABDOMEN: Normal. OTHER FINDINGS: None. IMPRESSION: No active pulmonary disease.
[2017-01-08] MEDS ORDERED: Azithromycin 500MG/NS 250ml 500 MG/250 ML BAG IVPB SCH (10:00)
[2017-01-08] MEDS ORDERED: MethylPREDNISolone 40 mg Vial IVP ONE (12:41)
--- NOTE | 2017-01-08 14:48 | CP.PCM.DIS ---
<MikemaninderJerri almonten - Last Filed: 01/08/17 14:39> Provider - Provider Date of Admission: 01/07/17 22:53 Attending physician: Edmar Vargas MD Time Spent in preparation of Discharge (in minutes): 45 Diagnosis - Discharge Diagnosis (1) Exacerbation of asthma Status: Acute Hospital Course - Lab Results Lab Results: Most Recent Lab Values WBC 14.8 10^3/ul (4.5-11.0) H 01/08/17 06:00 RBC 4.79 10^6/uL (3.5-6.1) 01/08/17 06:00 Hgb 13.5 g/dL (14.0-18.0) L 01/08/17 06:00 Hct 39.4 % (42.0-52.0) L 01/08/17 06:00 MCV 82.3 fl (80.0-105.0) 01/08/17 06:00 MCH 28.2 pg (25.0-35.0) 01/08/17 06:00 MCHC 34.3 g/dl (31.0-37.0) 01/08/17 06:00 RDW 13.3 % (11.5-14.5) 01/08/17 06:00 Plt Count 204 10^3/uL (120.0-450.0) 01/08/17 06:00 MPV 9.7 fl (7.0-11.0) 01/08/17 06:00 Gran % 83.7 % (50.0-68.0) H 01/08/17 06:00 Lymph % (Auto) 11.0 % (22.0-35.0) L 01/08/17 06:00 [place] % (Auto) 5.2 % (1.0-6.0) 01/08/17 06:00 Eos % (Auto) 0.0 % (1.5-5.0) L 01/08/17 06:00 Baso % (Auto) 0.1 % (0.0-3.0) 01/08/17 06:00 Gran # 12.37 (1.4-6.5) H 01/08/17 06:00 Lymph # 1.6 (1.2-3.4) 01/08/17 06:00 [place] # 0.8 (0.1-0.6) H 01/08/17 06:00 Eos # 0.0 (0.0-0.7) 01/08/17 06:00 Baso # 0.01 K/mm3 (0.0-2.0) 01/08/17 06:00 Sodium 139 mmol/L (132-148) 01/08/17 06:00 Potassium 4.3 mmol/L (3.6-5.0) 01/08/17 06:00 Chloride 105 mmol/L (95-110) 01/08/17 06:00 Carbon Dioxide 23 mmol/L (21-33) 01/08/17 06:00 Anion Gap 15 (10-20) 01/08/17 06:00 BUN 10 mg/dL (7-21) 01/08/17 06:00 Creatinine 0.8 mg/dL (0.8-1.5) 01/08/17 06:00 Est GFR ( Amer) > 60 01/08/17 06:00 Est GFR (Non-Af Amer) > 60 01/08/17 06:00 Random Glucose 166 mg/dL (70-110) H 01/08/17 06:00 Calcium 9.3 mg/dL (8.4-10.5) 01/08/17 06:00 - Hospital Course Hospital Course: 36M w/ hx of poorly controlled asthma with no prior incubations prestned to the [facility] ED on 01/07/17 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 Pt had similar episodes prior when he did not wear a mask. During hospital stay pt received nebulizer treatments and IV steroids. During the following encounter pt stated he is feeling much better. Saturating at 98% w/ no wheezing or SOB. Pt cleared to go home on Antibiotics, and steroids. Encourage follow up with pulmonology. Discharge Exam - Head Exam Head Exam: ATRAUMATIC, NORMAL INSPECTION, NORMOCEPHALIC - Eye Exam Eye Exam: EOMI. absent: Scleral icterus - ENT Exam ENT Exam: Mucous Membranes Moist - Respiratory Exam Respiratory Exam: NORMAL BREATHING PATTERN. absent: Accessory Muscle Use, Wheezes, Respiratory Distress - Cardiovascular Exam Cardiovascular Exam: +S1, +S2. absent: Bradycardia, Tachycardia - GI/Abdominal Exam GI & Abdominal Exam: Soft. absent: Distended, Firm, Guarding, Rebound, Rigid, Tenderness - Extremities Exam Extremities exam: normal inspection - Back Exam Back exam: absent: CVA tenderness (L), CVA tenderness (R) - Neurological Exam Neurological exam: Alert, Oriented x3 - Psychiatric Exam Psychiatric exam: Normal Affect - Skin Skin Exam: Normal Color, Warm Discharge Plan - Discharge Medications Prescriptions: Albuterol 0.083% [Albuterol 0.083% Inhal Kianna (2.5 mg/3 ml) UD] 3 ml IH Q4 PRN # 1 pkg PRN Reason: Wheezing Methylprednisolone [Medrol Dose Pack (21 tabs)] 4 mg PO ONCE #21 mg - Follow Up Plan Condition: GUARDED Disposition: HOME/ ROUTINE Instructions: Asthma (DC), Pneumococcal Vaccine for Adults (DC), Influenza Vaccine (DC), COPD (Chronic Obstructive Pulmonary Disease) (DC) Additional Instructions: Being sent home on Antibiotics and oral tapering dose of steroids. Take as instructed on the box from the pharmacy. If symptoms get worse, or fevers greater than 100.4 go to the ED. Follow up with your primary care doctor in 1-2 weeks. <Edmar Vargas - Last Filed: 01/08/17 15:44> Provider - Provider Date of Admission: 01/07/17 22:53 Attending physician: Edmar Vargas MD Hospital Course - Lab Results Lab Results: Most Recent Lab Values WBC 14.8 10^3/ul (4.5-11.0) H 01/08/17 06:00 RBC 4.79 10^6/uL (3.5-6.1) 01/08/17 06:00 Hgb 13.5 g/dL (14.0-18.0) L 01/08/17 06:00 Hct 39.4 % (42.0-52.0) L 01/08/17 06:00 MCV 82.3 fl (80.0-105.0) 01/08/17 06:00 MCH 28.2 pg (25.0-35.0) 01/08/17 06:00 MCHC 34.3 g/dl (31.0-37.0) 01/08/17 06:00 RDW 13.3 % (11.5-14.5) 01/08/17 06:00 Plt Count 204 10^3/uL (120.0-450.0) 01/08/17 06:00 MPV 9.7 fl (7.0-11.0) 01/08/17 06:00 Gran % 83.7 % (50.0-68.0) H 01/08/17 06:00 Lymph % (Auto) 11.0 % (22.0-35.0) L 01/08/17 06:00 [place] % (Auto) 5.2 % (1.0-6.0) 01/08/17 06:00 Eos % (Auto) 0.0 % (1.5-5.0) L 01/08/17 06:00 Baso % (Auto) 0.1 % (0.0-3.0) 01/08/17 06:00 Gran # 12.37 (1.4-6.5) H 01/08/17 06:00 Lymph # 1.6 (1.2-3.4) 01/08/17 06:00 [place] # 0.8 (0.1-0.6) H 01/08/17 06:00 Eos # 0.0 (0.0-0.7) 01/08/17 06:00 Baso # 0.01 K/mm3 (0.0-2.0) 01/08/17 06:00 Sodium 139 mmol/L (132-148) 01/08/17 06:00 Potassium 4.3 mmol/L (3.6-5.0) 01/08/17 06:00 Chloride 105 mmol/L (95-110) 01/08/17 06:00 Carbon Dioxide 23 mmol/L (21-33) 01/08/17 06:00 Anion Gap 15 (10-20) 01/08/17 06:00 BUN 10 mg/dL (7-21) 01/08/17 06:00 Creatinine 0.8 mg/dL (0.8-1.5) 01/08/17 06:00 Est GFR ( Amer) > 60 01/08/17 06:00 Est GFR (Non-Af Amer) > 60 01/08/17 06:00 Random Glucose 166 mg/dL (70-110) H 01/08/17 06:00 Calcium 9.3 mg/dL (8.4-10.5) 01/08/17 06:00 Attending/Attestation - Attestation I have personally seen and examined this patient.: Yes I have fully participated in the care of the patient.: Yes I have reviewed all pertinent clinical information, including history, physical exam and plan: Yes Notes (Text): 01/08/17 15:41 Patient was seen and examined with medical specialist. Agreed with resident assessment and plan. 36 yrs old male was admitted with acute asthma exacerbation, has responded well to NEB/iv STEROID. His cough and dyspnea has improved. He is on room air and ambulatory. He will be discharged home on tapering dose of prednisone, albuerol and low dose steroid inhaler. Patient will follow up with PCP. Management plan was discussed in detail with patient Education was provided.
== END 2017-01-08 15:57 | disposition home or self-care (01) ==
LOC: ED 19:46 → ERH 22:53 → 5RSO 01-08 00:35
PROVIDERS: ADMIT Hospitalist; ATTEND Internal Medicine
DX: J45.901 Unspecified asthma with (acute) exacerbation (principal); J06.9 Acute upper respiratory infection, unspecified; J44.9 Chronic obstructive pulmonary disease, unspecified; Z87.891 Personal history of nicotine dependence; Z87.442 Personal history of urinary calculi; J30.2 Other seasonal allergic rhinitis; R11.0 Nausea
CPT/HCPCS: 36415; 71020; 80048; 85025; 94640; 96361; 96365; 96366; 96375; 96376; 99282; G0378; J0456; J2920; J3475; J7040

== ENCOUNTER 2017-03-25 22:25 | Emergency (ER) | payer MEDICAID ==
[2017-03-25 22:25] VITALS: BMI 29.3
[2017-03-25 22:34] VITALS: BP 160/97; PULSE 100; O2SAT 98
[2017-03-25 22:58] VITALS: RESP 18
--- NOTE | 2017-03-25 23:03 | ED PDOC ---
Arrival/HPI - General Chief Complaint: Respiratory Distress Time Seen by Provider: 03/25/17 22:58 Historian: Patient, EMS - History of Present Illness Narrative History of Present Illness (Text): 03/25/17 23:03 36 y/o male, pmh including asthma, nkda, allergic to dogs, c/o asthma exacerbation x 1 hour. Pt. stated that he went to a friend's house with dog inside which he started coughing and wheezing, ambulance called and gave duonebx2 with solumedrol 125mg IV, stated that he feels fine now and coughing resolved, no palpitation, no chest pain, no night sweat, no numbness or tingling , no other medical or psychological complaints. Past Medical History - Provider Review Nursing Documentation Reviewed: Yes - Past History Past History: No Previous - Infectious Disease Hx of Infectious Diseases: None - Tetanus Immunization Tetanus Immunization: Unknown - Cardiac Hx Cardiac Disorders: No - Pulmonary Hx Asthma: Yes Hx Bronchitis: Yes Hx Chronic Obstructive Pulmonary Disease (COPD): Yes - Neurological Hx Neurological Disorder: No - HEENT Hx HEENT Disorder: No - Renal Hx Renal Disorder: No - Endocrine/Metabolic Hx Endocrine Disorders: No - Hematological/Oncological Hx Blood Disorders: No - Integumentary Hx Dermatological Disorder: No - Musculoskeletal/Rheumatological Hx Musculoskeletal Disorders: No Hx Falls: No - Gastrointestinal Hx Gastrointestinal Disorders: No - Genitourinary/Gynecological Hx Genitourinary Disorders: No - Psychiatric Hx Psychophysiologic Disorder: No Hx Substance Use: No - Surgical History Hx Amputation: No Hx Cardiac Catheterization: No Hx Gastric Bypass Surgery: No Hx Hysterectomy: No Hx Joint Replacement: No Hx Kidney Transplant: No Hx Liver Transplant: No Hx Mastectomy: No Hx Musculoskeletal Surgery: No Hx Open Heart Surgery: No Hx Orthopedic Surgery: No Hx Splenectomy: No Hx Valve Replacement: No Other/Comment: REMOVAL OF KIDNEY STONES - Anesthesia Hx Anesthesia: No Hx Anesthesia Reactions: No Hx Malignant Hyperthermia: No - Suicidal Assessment Feels Threatened In Home Enviroment: No Family/Social History - Physician Review Nursing Documentation Reviewed: Yes Family/Social History: Unknown Family HX Smoking Status: Former Smoker Hx Alcohol Use: Yes Frequency of alcohol use: Socially Hx Substance Use: No Allergies/Home Meds Allergies/Adverse Reactions: Allergies No Known Allergies Allergy (Verified 05/20/16 19:41) Review of Systems - Review of Systems Constitutional: absent: Fatigue, Fevers Eyes: absent: Vision Changes ENT: absent: Hearing Changes Respiratory: Cough, Wheezing. absent: SOB, Sputum Cardiovascular: absent: Chest Pain Gastrointestinal: absent: Abdominal Pain, Nausea, Vomiting Musculoskeletal: absent: Arthralgias, Myalgias Skin: absent: Rash, Pruritis Neurological: absent: Headache, Dizziness, Gait Changes Psychiatric: absent: Anxiety, Depression, Suicidal Ideation Physical Exam Vital Signs Pulse Resp BP Pulse Ox 03/25/17 22:50 18 03/25/17 22:34 100 H 26 H 160/97 H 98 Temperature: Afebrile Blood Pressure: Hypertensive Pulse: Regular Respiratory Rate: Tachypneic Appearance: Positive for: Well-Appearing Pain Distress: None Mental Status: Positive for: Alert and Oriented X 3 - Systems Exam Head: Present: Atraumatic, Normocephalic Pupils: Present: PERRL Extroacular Muscles: Present: EOMI Conjunctiva: Present: Normal Ears: Present: NORMAL TM, Normal Canal. No: Erythema Mouth: Present: Moist Mucous Membranes Pharnyx: No: ERYTHEMA, EXUDATE, TONSILS ENLARGED, Uvular Deviation, Muffled/ Hoarse Voice Nose (External): Present: Atraumatic. No: Abrasion, Contusion Nose (Internal): Present: Normal Inspection, No Active Bleeding. No: Rhinorrhea , Septal Hematoma, Epistaxis Neck: Present: Normal Range of Motion, Trachea Midline. No: MIDLINE TENDERNESS , Paraspinal Tenderness, Lymphadenopathy Respiratory/Chest: Present: Clear to Auscultation, Good Air Exchange, Wheezes ( mild wheezing on the left lung region), Tachypneic. No: Respiratory Distress, Accessory Muscle Use, Decreased Breath Sounds, Rales, Retracting, Rhonchi, Tender to Palpation Cardiovascular: Present: Regular Rate and Rhythm, Normal S1, S2. No: Murmurs Abdomen: Present: Normal Bowel Sounds. No: Tenderness, Distention, Peritoneal Signs, Rebound, Guarding Back: Present: Normal Inspection Upper Extremity: Present: Normal Inspection. No: Cyanosis, Edema Lower Extremity: Present: Normal Inspection. No: Edema Neurological: Present: GCS=15, Speech Normal, Motor Func Grossly Intact, Gait Normal, Memory Normal Skin: Present: Warm, Dry, Normal Color. No: Rashes Psychiatric: Present: Alert, Oriented x 3, Normal Insight, Normal Concentration Medical Decision Making ED Course and Treatment: 03/25/17 23:06 -benadryl and duoneb x1 -Chest xray -observe and reassess 03/25/17 23:42 -Chest xray show no active disease -Pt. feels much better, lung is clear to auscultate with no wheezing/crackles/ rhonchis. -Pt. request to be discharged home, will discharge home. -Discharge home with zyrtec, prednisone, albuterol MDI, stay hydrated, bed rest , follow up with your own pmd and vice president & general manager [employer] [place] within 2 days, return to the ER for any new or worsening signs or symptomis. - RAD Interpretation Radiology Orders: 03/25/17 22:59 CHEST PORTABLE [RAD] Stat no acute infiltrate Thread Checker: Radiologist - Medication Orders Current Medication Orders: Discontinued Medications Albuterol/Ipratropium (Duoneb 3 Mg/0.5 Mg (3 Ml) Ud) 3 ml IH STAT STA Stop: 03/25/17 23:08 Last Admin: 03/25/17 23:22 Dose: 3 ml Diphenhydramine HCl (Benadryl) 50 mg PO STAT STA Stop: 03/25/17 23:00 Last Admin: 03/25/17 23:22 Dose: 50 mg - PA / [employer] / Resident Statement MD/DO has reviewed & agrees with the documentation as recorded. Disposition/Present on Arrival - Present on Arrival Any Indicators Present on Arrival: No History of DVT/PE: No History of Uncontrolled Diabetes: No Urinary Catheter: No History of Decub. Ulcer: No History Surgical Site Infection Following: None - Disposition Have Diagnosis and Disposition been Completed?: Yes Diagnosis: Asthma exacerbation, Allergic reaction Disposition: HOME/ ROUTINE Disposition Time: 23:44 Patient Plan: Discharge Condition: IMPROVED Additional Instructions: -Discharge home with zyrtec, prednisone, albuterol MDI, stay hydrated, bed rest , follow up with your own pmd and vice president & general manager [employer] [place] within 2 days, return to the ER for any new or worsening signs or symptomis. Prescriptions: Albuterol HFA [Ventolin HFA 90 mcg/actuation (8 g)] 2 puff IH [id number] PRN #1 puff PRN Reason: Other Cetirizine HCl [Zyrtec] 10 mg PO DAILY #10 capsule Prednisone 50 mg PO DAILY #5 tablet Referrals: Blas Lindsey MD [Primary Care Provider] - Follow up with primary Edmar López MD [Staff Provider] - Follow up with primary Forms: WORK NOTE
[2017-03-25] MEDS ORDERED: Albuterol-Ipratrop 3 mg / 0.5 (3 ml) UD IH STA (23:07)
--- NOTE | 2017-03-26 13:33 | RAD ---
HISTORY: medical clearance COMPARISON: Comparison chest 01/08/2017 FINDINGS: LUNGS: Note that there is partial obscuration of the left medial lung apex by overlying mandible and facial soft tissue artifact. PLEURA: No significant pleural effusion identified, no pneumothorax apparent. CARDIOVASCULAR: Normal. OSSEOUS STRUCTURES: No significant abnormalities. VISUALIZED UPPER ABDOMEN: Normal. OTHER FINDINGS: None. IMPRESSION: Incomplete visualization medial aspect left lung apex. No acute infiltrates
== END 2017-03-25 23:55 | disposition home or self-care (01) ==
LOC: ED 22:25
DX: J45.901 Unspecified asthma with (acute) exacerbation (principal); Z87.891 Personal history of nicotine dependence

== ENCOUNTER 2017-05-25 20:26 | Emergency (ER) | payer MEDICAID, OTHER ==
[2017-05-25 20:27] VITALS: BMI 29.3
[2017-05-25 20:38] VITALS: RESP 18; TEMP 98.6
[2017-05-25] MEDS ORDERED: Sodium Chloride 0.9% 500 ML IV STA (21:02)
--- NOTE | 2017-05-25 21:12 | ED PDOC ---
Arrival/HPI - General Chief Complaint: GI Problem Time Seen by Provider: 05/25/17 20:51 Historian: Patient, Spouse - History of Present Illness Narrative History of Present Illness (Text): 05/25/17 21:00 Maurilio Moore is a 37 year old male accompanied by , whose past medical history includes asthma, who presents to the emergency department complaining of two weeks duration of body aches, subjective fever, and non-specific abdominal pain. Patient states that he was [place] [facility] [place] and was worked up for flu-like symptoms. He was discharged on supportive care. Patient comes to the emergency department tonight because he continues to have abdominal pain, body aches, vomiting x2, and diarrhea with associated lack of appetite. Patient confirms sick person contact and did not have the flu vaccination this year. Patient denies any bowel change, urine change, chest pain , shortness of breath, or any other complaints at this time. Time/Duration: < month (2 weeks) Symptom Onset: Gradual Symptom Course: Unchanged Activities at Onset: Light Context: Home Past Medical History - Provider Review Nursing Documentation Reviewed: Yes - Travel History Have you recently traveled outside [place] w/in the past 3 mons?: No - Past History Past History: No Previous - Infectious Disease Hx of Infectious Diseases: None - Tetanus Immunization Tetanus Immunization: Unknown - Cardiac Hx Cardiac Disorders: No - Pulmonary Hx Asthma: Yes Hx Bronchitis: Yes Hx Chronic Obstructive Pulmonary Disease (COPD): Yes - Neurological Hx Neurological Disorder: No - HEENT Hx HEENT Disorder: No - Renal Hx Renal Disorder: No - Endocrine/Metabolic Hx Endocrine Disorders: No - Hematological/Oncological Hx Blood Disorders: No - Integumentary Hx Dermatological Disorder: No - Musculoskeletal/Rheumatological Hx Musculoskeletal Disorders: No Hx Falls: No - Gastrointestinal Hx Gastrointestinal Disorders: No - Genitourinary/Gynecological Hx Genitourinary Disorders: No - Psychiatric Hx Psychophysiologic Disorder: No Hx Substance Use: No - Surgical History Hx Amputation: No Hx Cardiac Catheterization: No Hx Gastric Bypass Surgery: No Hx Hysterectomy: No Hx Joint Replacement: No Hx Kidney Transplant: No Hx Liver Transplant: No Hx Mastectomy: No Hx Musculoskeletal Surgery: No Hx Open Heart Surgery: No Hx Orthopedic Surgery: No Hx Splenectomy: No Hx Valve Replacement: No Other/Comment: REMOVAL OF KIDNEY STONES - Anesthesia Hx Anesthesia: Yes Hx Anesthesia Reactions: No Hx Malignant Hyperthermia: No - Suicidal Assessment Feels Threatened In Home Enviroment: No Family/Social History - Physician Review Nursing Documentation Reviewed: Yes Family/Social History: No Known Family HX Smoking Status: Former Smoker Hx Alcohol Use: Yes Hx Substance Use: No Allergies/Home Meds Allergies/Adverse Reactions: Allergies No Known Allergies Allergy (Verified 05/25/17 20:38) Home Medications: Home Meds Medication Instructions Recorded Confirmed Albuterol HFA [Ventolin HFA 90 2 puff IH Q4 PRN 05/25/17 05/25/17 mcg/actuation (8 g)] Review of Systems - Physician Review All systems were reviewed & negative as marked: Yes - Review of Systems Constitutional: Fevers, Night Sweats, Other (Body aches) Eyes: absent: Vision Changes ENT: absent: Hearing Changes Respiratory: absent: SOB Cardiovascular: absent: Chest Pain Gastrointestinal: Abdominal Pain, Vomiting, Appetite Changes Genitourinary Male: absent: Dysuria, Frequency Musculoskeletal: absent: Arthralgias, Back Pain Skin: absent: Rash, Pruritis Neurological: absent: Headache, Dizziness Endocrine: absent: Diaphoresis Hemo/Lymphatic: absent: Adenopathy Psychiatric: absent: Anxiety, Depression Physical Exam Vital Signs Reviewed: Yes Vital Signs Temp Pulse Resp BP Pulse Ox 05/26/17 00:51 65 18 136/73 99 05/25/17 20:35 98.6 F 76 18 150/92 H 97 Temperature: Afebrile Blood Pressure: Hypertensive Pulse: Regular Respiratory Rate: Normal Appearance: Positive for: Non-Toxic, Uncomfortable Pain Distress: Mild Mental Status: Positive for: Alert and Oriented X 3 - Systems Exam Head: Present: Atraumatic, Normocephalic Pupils: Present: PERRL Extroacular Muscles: Present: EOMI Conjunctiva: Present: Normal Mouth: Present: Moist Mucous Membranes Neck: Present: Normal Range of Motion. No: Meningeal Signs, MIDLINE TENDERNESS , Paraspinal Tenderness, JVD, Lymphadenopathy, Bruit, Trachea Midline, Other Respiratory/Chest: Present: Wheezes (Significant bilateral lung field wheezing) Cardiovascular: Present: Regular Rate and Rhythm, Normal S1, S2. No: Murmurs Abdomen: Present: Tenderness (Point tenderness to RUQ), Normal Bowel Sounds, McBurney's Point Tender (Positive rebound over McBurney's Point), Rovsing's Sign Present Back: Present: Normal Inspection Upper Extremity: Present: Normal Inspection. No: Cyanosis, Edema Lower Extremity: Present: Normal Inspection. No: Edema Neurological: Present: GCS=15, CN II-XII Intact, Speech Normal Skin: Present: Warm, Dry, Normal Color. No: Rashes Psychiatric: Present: Alert, Oriented x 3, Normal Insight, Normal Concentration Medical Decision Making ED Course and Treatment: 05/25/17 21:15 Impression: 37 year old male complaining of two weeks duration of body aches, subjective fever, and non-specific abdominal pain. Differential Diagnosis included but are not limited to: influenza renal stone appendicitis cholecystitis/cholelithiasis Plan: -- Abdomen and Pelvis CT w/o contrast -- Urinalysis -- Labs -- IV Fluids -- Reassess and disposition Prior Visits: Notes and results from previous visits were reviewed. Patient was last seen in the emergency department on 03/25/17 for asthma exacerbation. Patient was discharged home. Progress Notes: Pt started on fluids and noted improvement Labs indicate K of 3.2 likely d/t dehydration and vomiting Pt resting comfortably in bed; 2nd 500cc NS given Vomited approx 1/2 cup of yellow vomit; Zofran 4mg ivp STAT Famotidine 20 mg ivp Pt reassessed with antiemetic,H2 afshan, acetaminophen for pain. Strongly encouraged pt to f/u with PMD if symptoms persist; may require GI work up 05/26/17 11:45 - Lab Interpretations Lab Results: 05/25/17 20:45 05/25/17 20:45 Lab Results 05/25/17 20:45: Sodium 139, Potassium 3.2 L, Chloride 100, Carbon Dioxide 24, Anion Gap 18, BUN 11, Creatinine 1.1, Est GFR ( Amer) > 60, Est GFR (Non- Af Amer) > 60, Random Glucose 102, Calcium 10.1, Total Bilirubin 0.8, AST 22, ALT 23, Alkaline Phosphatase 77, Total Protein 7.6, Albumin 4.6, Globulin 3.0, Albumin/Globulin Ratio 1.5 05/25/17 20:45: WBC 7.8 D, RBC 5.33, Hgb 15.3, Hct 44.2, MCV 82.9, MCH 28.7, MCHC 34.6, RDW 12.4, Plt Count 248, MPV 10.5, Gran % 51.4, Lymph % (Auto) 36.7 H , [place] % (Auto) 8.2 H, Eos % (Auto) 3.6, Baso % (Auto) 0.1, Gran # 4.03, Lymph # (Auto) 2.9, [place] # (Auto) 0.6, Eos # (Auto) 0.3, Baso # (Auto) 0.01 I have reviewed the lab results: Yes - RAD Interpretation Radiology Orders: 05/25/17 21:01 ABD & PELVIS W/O PO OR IV CONT [CT] Stat - EKG Interpretation EKG Interpretation (Text): 05/25/17 23:27 FINDINGS: Lower thorax: A small hiatal hernia is present. ABDOMEN: Liver: Unremarkable. Gallbladder and bile ducts: Unremarkable. No calcified stones. No ductal dilation. Pancreas: Unremarkable. No ductal dilation. Spleen: Unremarkable. No splenomegaly. Adrenals: Unremarkable. No mass. Kidneys and ureters: Unremarkable. No obstructing stones. No hydronephrosis. Stomach and bowel: Unremarkable. No obstruction. No mucosal thickening. Appendix: A normal appendix is identified. PELVIS: Bladder: Unremarkable. No stones. Reproductive: Unremarkable as visualized. Intraperitoneal space: Unremarkable. No free air. No significant fluid collection. Bones/joints: No acute fracture. No dislocation. Soft tissues: Unremarkable. Vasculature: Unremarkable. No abdominal aortic aneurysm. Lymph nodes: Unremarkable. No enlarged lymph nodes. IMPRESSION: No acute findings. - Medication Orders Current Medication Orders: Discontinued Medications Famotidine (Pepcid) 20 mg PO STAT STA Stop: 05/26/17 00:44 Last Admin: 05/26/17 00:50 Dose: 20 mg Sodium Chloride (Sodium Chloride 0.9%) 500 mls @ 999 mls/hr IV .Q31M STA Stop: 05/25/17 21:32 Last Admin: 05/25/17 21:27 Dose: 999 mls/hr eMAR Start Stop Document 05/25/17 21:27 RD (Rec: 05/25/17 21:27 RD [id number]) Intravenous Solution Start Date 05/25/17 Start Time 21:27 End Date 05/25/17 End time 22:27 Total Infusion Time 60 Ondansetron HCl (Zofran Inj) 4 mg IVP STAT STA Stop: 05/25/17 23:24 Last Admin: 05/25/17 23:32 Dose: 4 mg IVP Administration Document 05/25/17 23:32 RD (Rec: 05/25/17 23:32 RD [id number]) Charges for Administration # of IVP Administrations 1 Potassium Chloride (K-Dur 20 Meq Er Tab) 20 meq PO STAT STA Stop: 05/26/17 01:11 Last Admin: 05/26/17 01:24 Dose: 20 meq - Scribe Statement The provider has reviewed the documentation as recorded by the Lacy Ferguson Provider Scribe Attestation: All medical record entries made by the Leoncioibsalomon were at my direction and personally dictated by me. I have reviewed the chart and agree that the record accurately reflects my personal performance of the history, physical exam, medical decision making, and the department course for this patient. I have also personally directed, reviewed, and agree with the discharge instructions and disposition. Disposition/Present on Arrival - Present on Arrival Any Indicators Present on Arrival: Yes History of DVT/PE: No History of Uncontrolled Diabetes: No Urinary Catheter: No History of Decub. Ulcer: No History Surgical Site Infection Following: None - Disposition Have Diagnosis and Disposition been Completed?: Yes Diagnosis: Influenza, Vomiting, Hiatal hernia Disposition: HOME/ ROUTINE Disposition Time: 00:46 Patient Plan: Discharge Condition: STABLE Discharge Instructions (ExitCare): Flu, Adult (DC), Nausea and Vomiting, Adult (DC), Hiatal Hernia (DC) Additional Instructions: Deajohnnie Thorpe, Please see your Primary doctor in the next 1-2 days for follow up. Remember to drink plenty of fluids, and get rest. If you have fever and pain, you may take Tylenol as prescribed or ibuprofen. Return to the emergency department if you have high fever, chest pain, shortness of breath, continuous vomiting, or any other alarming symptoms. All the best in your recovery Prescriptions: Acetaminophen 650 mg PO Q6 5 Days #40 capsule Famotidine 20 mg PO Q12 5 Days #10 tablet Ondansetron [Zofran] 4 mg PO Q8H #15 tab Referrals: Artemio Boyd, [Non-Staff] - Follow up with primary Forms: [employer] (E[place]ian)
[2017-05-25 22:03] LABS: ALB/GLOB RATIO 1.5 (1.1-1.8); ALBUMIN 4.6 g/dL (3.0-4.8); ALT/SGPT 23 U/L (7-56); AST/SGOT 22 U/L (17-59); BASO # 0.01 K/mm3 (0.0-2.0); BASO % 0.1 % (0.0-3.0); BLOOD UREA NITROGEN 11 mg/dL (7-21); CALCIUM 10.1 mg/dL (8.4-10.5); EOS # 0.3 (0.0-0.7); EOS % 3.6 % (1.5-5.0); GFR AFRICAN-AMERICAN > 60; GFR NON-AFRICAN AMERICAN > 60; GRAN # 4.03 (1.4-6.5); GRAN % 51.4 % (50.0-68.0); HEMOGLOBIN 15.3 g/dL (14.0-18.0); LYMPH # 2.9 (1.2-3.4); LYMPH % 36.7 % (22.0-35.0); MEAN CELL VOLUME 82.9 fl (80.0-105.0); MEAN CORPUSCULAR HEMOGLOBIN 28.7 pg (25.0-35.0); MEAN CORPUSCULAR HGB CONC 34.6 g/dl (31.0-37.0); MEAN PLATELET VOLUME 10.5 fl (7.0-11.0); MONO # 0.6 (0.1-0.6); MONO % 8.2 % (1.0-6.0); RBC 5.33 10^6/uL (3.5-6.1); RED CELL DISTRIBUTION WIDTH 12.4 % (11.5-14.5); WHITE BLOOD COUNT 7.8 10^3/ul (4.5-11.0)
[2017-05-25] MEDS ORDERED: Potassium Chloride 20 mEq ER Tab PO STA (22:52)
[2017-05-26 00:52] VITALS: BP 136/73; PULSE 65; O2SAT 99
[2017-05-26] MEDS ORDERED: Potassium Chloride 20 mEq ER Tab PO STA (01:10)
--- NOTE | 2017-05-26 08:37 | CT ---
PROCEDURE: CT Abdomen and Pelvis without intravenous contrast HISTORY: abdominal pain COMPARISON: None. TECHNIQUE: Without contrast. Contrast Dose: Radiation dose: Total exam DLP = 601 mGy-cm. This CT exam was performed using one or more of the following dose reduction techniques: Automated exposure control, adjustment of the mA and/or kV according to patient size, and/or use of iterative reconstruction technique. FINDINGS: LOWER THORAX: Unremarkable. LIVER: Unremarkable. No gross lesion or ductal dilatation. GALLBLADDER AND BILE DUCTS: Unremarkable. PANCREAS: Unremarkable. No gross lesion or ductal dilatation. SPLEEN: Unremarkable. ADRENALS: Unremarkable. No mass. KIDNEYS AND URETERS: Unremarkable. No hydronephrosis. No solid mass. VASCULATURE: Unremarkable. No aortic aneurysm. BOWEL: Unremarkable. No obstruction. No gross mural thickening. APPENDIX: Unremarkable. Normal appendix. PERITONEUM: Unremarkable. No free fluid. No free air. LYMPH NODES: Unremarkable. No enlarged lymph nodes. BLADDER: Unremarkable. REPRODUCTIVE: Unremarkable. BONES: No acute fracture. OTHER FINDINGS: The report concurs with the preliminary [facility] report IMPRESSION: No acute intra-abdominal findings
== END 2017-05-26 01:25 | disposition home or self-care (01) ==
LOC: ED 20:26
DX: J11.1 Influenza due to unidentified influenza virus with other respiratory manifestations (principal); K44.9 Diaphragmatic hernia without obstruction or gangrene; R11.10 Vomiting, unspecified; Z87.891 Personal history of nicotine dependence
CPT/HCPCS: 74176; 80053; 85025; 96361; 96374; 99283; J2405; J7040

== ENCOUNTER 2017-06-25 00:26 | Emergency (ER) | payer OTHER ==
[2017-06-25 00:27] VITALS: BMI 29.3
[2017-06-25] MEDS ORDERED: Albuterol-Ipratrop 3 mg / 0.5 (3 ml) UD IH STA (00:33)
--- NOTE | 2017-06-25 00:33 | ED PDOC ---
Arrival/HPI - General Time Seen by Provider: 06/25/17 00:28 Historian: Patient - History of Present Illness Narrative History of Present Illness (Text): 06/25/17 00:33 Maurilio Moore is a 37 year old male, whose past medical history includes asthma, who presents to the ED brought in by EMS complaining of wheezing and shortness of breath tonight. Patient states symptoms are similar in quality to previous episodes of asthma and reports he does not have any nebulizer treatments at home. Patient denies any fever, chills, chest pain, abdominal pain , nausea, vomiting, neck pain, headache, dizziness, or any other complaints. Time/Duration: Other (tonight) Symptom Onset: Gradual Symptom Course: Unchanged Activities at Onset: Light Context: Home Past Medical History - Provider Review Nursing Documentation Reviewed: Yes - Past History Past History: No Previous - Infectious Disease Hx of Infectious Diseases: None - Tetanus Immunization Tetanus Immunization: Unknown - Cardiac Hx Cardiac Disorders: No - Pulmonary Hx Asthma: Yes Hx Bronchitis: Yes Hx Chronic Obstructive Pulmonary Disease (COPD): Yes - Neurological Hx Neurological Disorder: No - HEENT Hx HEENT Disorder: No - Renal Hx Renal Disorder: No - Endocrine/Metabolic Hx Endocrine Disorders: No - Hematological/Oncological Hx Blood Disorders: No - Integumentary Hx Dermatological Disorder: No - Musculoskeletal/Rheumatological Hx Musculoskeletal Disorders: No Hx Falls: No - Gastrointestinal Hx Gastrointestinal Disorders: No - Genitourinary/Gynecological Hx Genitourinary Disorders: No - Psychiatric Hx Psychophysiologic Disorder: No Hx Substance Use: No - Surgical History Hx Amputation: No Hx Cardiac Catheterization: No Hx Gastric Bypass Surgery: No Hx Hysterectomy: No Hx Joint Replacement: No Hx Kidney Transplant: No Hx Liver Transplant: No Hx Mastectomy: No Hx Musculoskeletal Surgery: No Hx Open Heart Surgery: No Hx Orthopedic Surgery: No Hx Splenectomy: No Hx Valve Replacement: No Other/Comment: REMOVAL OF KIDNEY STONES - Anesthesia Hx Anesthesia: Yes Hx Anesthesia Reactions: No Hx Malignant Hyperthermia: No - Suicidal Assessment Feels Threatened In Home Enviroment: No Family/Social History - Physician Review Nursing Documentation Reviewed: Yes Family/Social History: Unknown Family HX Smoking Status: Former Smoker Hx Alcohol Use: Yes Hx Substance Use: No Allergies/Home Meds Allergies/Adverse Reactions: Allergies No Known Allergies Allergy (Verified 05/25/17 20:38) Home Medications: Home Meds Medication Instructions Recorded Confirmed Albuterol HFA [Ventolin HFA 90 2 puff IH Q4 PRN 05/25/17 05/25/17 mcg/actuation (8 g)] Review of Systems - Physician Review All systems were reviewed & negative as marked: Yes - Review of Systems Constitutional: Normal. absent: Fevers Eyes: Normal ENT: Normal Respiratory: SOB, Wheezing Cardiovascular: Normal. absent: Chest Pain Gastrointestinal: Normal. absent: Abdominal Pain, Diarrhea, Nausea, Vomiting Genitourinary Male: Normal. absent: Dysuria, Frequency, Hematuria, Urinary Output Changes Musculoskeletal: Normal. absent: Back Pain, Neck Pain Skin: Normal. absent: Rash Neurological: Normal. absent: Headache, Dizziness Endocrine: Normal Hemo/Lymphatic: Normal Psychiatric: Normal Physical Exam Vital Signs Reviewed: Yes Vital Signs Temp Pulse Resp BP Pulse Ox 06/25/17 02:16 98 H 17 131/92 H 95 06/25/17 00:42 18 06/25/17 00:31 97.4 F L 114 H 18 144/94 H 94 L Temperature: Afebrile Blood Pressure: Normal Pulse: Tachycardic Respiratory Rate: Normal Appearance: Positive for: Well-Appearing, Non-Toxic, Comfortable Pain Distress: None Mental Status: Positive for: Alert and Oriented X 3 - Systems Exam Head: Present: Atraumatic, Normocephalic Pupils: Present: PERRL Extroacular Muscles: Present: EOMI Conjunctiva: Present: Normal Mouth: Present: Moist Mucous Membranes Neck: Present: Normal Range of Motion Respiratory/Chest: Present: Wheezes. No: Respiratory Distress, Accessory Muscle Use Cardiovascular: Present: Regular Rate and Rhythm, Normal S1, S2. No: Murmurs Abdomen: Present: Normal Bowel Sounds. No: Tenderness, Distention, Peritoneal Signs Back: Present: Normal Inspection Upper Extremity: Present: Normal Inspection. No: Cyanosis, Edema Lower Extremity: Present: Normal Inspection. No: Edema Neurological: Present: GCS=15, CN II-XII Intact, Speech Normal Skin: Present: Warm, Dry, Normal Color. No: Rashes Psychiatric: Present: Alert, Oriented x 3, Normal Insight, Normal Concentration Medical Decision Making ED Course and Treatment: 06/25/17 00:33 Impression: 37 year old male complaining of shortness of breath and wheezing tonight. Differential Diagnosis included but are not limited to: asthma exacerbation Plan: -- Duoneb -- Reassess and disposition Prior Visits: Notes and results from previous visits were reviewed. Progress Notes: 06/25/17 02:30 On re-evaluation, patient feels better and is in no acute distress. Patient in agreement with plan to be discharged home. Patient is stable for discharge. Patient was instructed to follow up with physician or return if symptoms worsen or new concerning symptoms arise. - Medication Orders Current Medication Orders: Discontinued Medications Albuterol/Ipratropium (Duoneb 3 Mg/0.5 Mg (3 Ml) Ud) 3 ml IH ONCE STA Stop: 06/25/17 00:34 Last Admin: 06/25/17 00:47 Dose: 3 ml - Scribe Statement The provider has reviewed the documentation as recorded by the Scribsalomon He All medical record entries made by the Leoncioibe were at my direction and personally dictated by me. I have reviewed the chart and agree that the record accurately reflects my personal performance of the history, physical exam, medical decision making, and the department course for this patient. I have also personally directed, reviewed, and agree with the discharge instructions and disposition. Disposition/Present on Arrival - Present on Arrival Any Indicators Present on Arrival: No History of DVT/PE: No History of Uncontrolled Diabetes: No Urinary Catheter: No History of Decub. Ulcer: No History Surgical Site Infection Following: None - Disposition Have Diagnosis and Disposition been Completed?: Yes Diagnosis: Asthma exacerbation Disposition: HOME/ ROUTINE Disposition Time: 02:31 Patient Plan: Discharge Patient Problems: Current Active Problems Problem Status Onset Asthma exacerbation Acute Condition: GOOD Discharge Instructions (ExitCare): Asthma, Adult (DC) Additional Instructions: Use meds as prescribed/follow up with your doctor this week Prescriptions: predniSONE [Prednisone] 40 mg PO DAILY #10 tab Albuterol HFA [Ventolin HFA 90 mcg/actuation (8 g)] 2 puff IH [id number] PRN #1 puff PRN Reason: Wheezing
[2017-06-25 02:17] VITALS: RESP 17
[2017-06-25 03:30] VITALS: BP 134/78; PULSE 93; TEMP 98.1; O2SAT 98
== END 2017-06-25 03:30 | disposition home or self-care (01) ==
LOC: ED 00:26
DX: J45.901 Unspecified asthma with (acute) exacerbation (principal); Z87.891 Personal history of nicotine dependence

== ENCOUNTER 2017-07-30 22:12 | Observation (INO) | payer OTHER ==
[2017-07-30 22:12] VITALS: BMI 29.3
[2017-07-30] MEDS ORDERED: Albuterol-Ipratrop 3 mg / 0.5 (3 ml) UD IH STA (22:42)
[2017-07-30] MEDS ORDERED: Sodium Chloride 0.9% 1,000 ML IV STA (22:42)
[2017-07-30 23:15] LABS: BASO # 0.02 K/mm3 (0.0-2.0); BASO % 0.1 % (0.0-3.0); EOS # 0.1 (0.0-0.7); EOS % 0.8 % (1.5-5.0); GRAN # 11.8 (1.4-6.5); GRAN % 81.4 % (50.0-68.0); HEMOGLOBIN 13.3 g/dL (14.0-18.0); LYMPH # 1.6 (1.2-3.4); MEAN CELL VOLUME 82.1 fl (80.0-105.0); MEAN CORPUSCULAR HEMOGLOBIN 28.1 pg (25.0-35.0); MEAN CORPUSCULAR HGB CONC 34.2 g/dl (31.0-37.0); MEAN PLATELET VOLUME 9.6 fl (7.0-11.0); MONO % 6.7 % (1.0-6.0); RBC 4.74 10^6/uL (3.5-6.1); RED CELL DISTRIBUTION WIDTH 12.6 % (11.5-14.5); WHITE BLOOD COUNT 14.5 10^3/ul (4.5-11.0)
[2017-07-30 23:27] LABS: ALB/GLOB RATIO 1.4 (1.1-1.8); ALBUMIN 4.2 g/dL (3.0-4.8); ALT/SGPT 33 U/L (7-56); AST/SGOT 33 U/L (17-59); BLOOD UREA NITROGEN 14 mg/dL (7-21); CALCIUM 9.1 mg/dL (8.4-10.5); GFR AFRICAN-AMERICAN > 60; GFR NON-AFRICAN AMERICAN > 60
[2017-07-31] MEDS ORDERED: Albuterol-Ipratrop 3 mg / 0.5 (3 ml) UD IH STA ×2 (00:25→01:32)
--- NOTE | 2017-07-31 01:22 | ED PDOC ---
Arrival/HPI - General Historian: Patient - History of Present Illness Time/Duration: Other (Today) Symptom Onset: Gradual Symptom Course: Unchanged Activities at Onset: Rest, Light Context: Home <Ivory Fontaine - Last Filed: 07/31/17 01:51> <Mariano Cabrales - Last Filed: 07/31/17 02:36> - General Chief Complaint: Shortness Of Breath Time Seen by Provider: 07/30/17 22:40 - History of Present Illness Narrative History of Present Illness (Text): 07/31/17 01:18 A 37 year old male, whose past medical history includes asthma, presents to the emergency department complaining of cough, fever, chills, and worsening asthma. The patient states that he took 3 nebulizer treatments at home with no improvement of his symptoms. He notes that he is spitting up green sputum. The patient is a smoker and states that he cut down from 1 pack to 1/2 a pack per day. He was recently hospitalized for asthma exacerbation. The patient denies sick contacts, headache, dizziness, chest pain, abdominal pain, nausea, vomiting , diarrhea, back pain, neck pain, urinary/bowel changes, or any other complaint. (Ivory Fontaine) Past Medical History - Provider Review Nursing Documentation Reviewed: Yes - Past History Past History: No Previous - Infectious Disease Hx of Infectious Diseases: None - Tetanus Immunization Tetanus Immunization: Unknown - Cardiac Hx Cardiac Disorders: No - Pulmonary Hx Asthma: Yes Hx Bronchitis: Yes Hx Chronic Obstructive Pulmonary Disease (COPD): Yes - Neurological Hx Neurological Disorder: No - HEENT Hx HEENT Disorder: No - Renal Hx Renal Disorder: No - Endocrine/Metabolic Hx Endocrine Disorders: No - Hematological/Oncological Hx Blood Disorders: No - Integumentary Hx Dermatological Disorder: No - Musculoskeletal/Rheumatological Hx Musculoskeletal Disorders: No Hx Falls: No - Gastrointestinal Hx Gastrointestinal Disorders: No - Genitourinary/Gynecological Hx Genitourinary Disorders: No - Psychiatric Hx Psychophysiologic Disorder: No Hx Substance Use: No - Surgical History Hx Amputation: No Hx Cardiac Catheterization: No Hx Gastric Bypass Surgery: No Hx Hysterectomy: No Hx Joint Replacement: No Hx Kidney Transplant: No Hx Liver Transplant: No Hx Mastectomy: No Hx Musculoskeletal Surgery: No Hx Open Heart Surgery: No Hx Orthopedic Surgery: No Hx Splenectomy: No Hx Valve Replacement: No Other/Comment: REMOVAL OF KIDNEY STONES - Anesthesia Hx Anesthesia: Yes Hx Anesthesia Reactions: No Hx Malignant Hyperthermia: No - Suicidal Assessment Feels Threatened In Home Enviroment: No <CorindennisIvory T - Last Filed: 07/31/17 01:51> Family/Social History - Physician Review Nursing Documentation Reviewed: Yes Family/Social History: No Known Family HX Smoking Status: Former Smoker Hx Alcohol Use: Yes Hx Substance Use: No <Ivory Fontaine - Last Filed: 07/31/17 01:51> Allergies/Home Meds <CorindennisIvory - Last Filed: 07/31/17 01:51> <Mariano Cabrales - Last Filed: 07/31/17 02:36> Allergies/Adverse Reactions: Allergies No Known Allergies Allergy (Verified 07/30/17 22:21) Home Medications: Home Meds Medication Instructions Recorded Confirmed Albuterol HFA [Ventolin HFA 90 2 puff IH Q4 PRN 05/25/17 07/30/17 mcg/actuation (8 g)] Review of Systems - Physician Review All systems were reviewed & negative as marked: Yes - Review of Systems Constitutional: Fevers Respiratory: Cough, Sputum (Green), Other (Worsening Asthma) Cardiovascular: absent: Chest Pain, UJÁREZ Gastrointestinal: absent: Abdominal Pain, Stool Changes, Diarrhea, Nausea, Vomiting Genitourinary Male: absent: Urinary Output Changes Musculoskeletal: absent: Back Pain, Neck Pain Neurological: absent: Headache, Dizziness <MinalIvory T - Last Filed: 07/31/17 01:51> Physical Exam Vital Signs Reviewed: Yes Temperature: Afebrile Blood Pressure: Normal Pulse: Tachycardic Respiratory Rate: Normal Appearance: Positive for: Well-Appearing, Non-Toxic, Comfortable Pain Distress: None Mental Status: Positive for: Alert and Oriented X 3 - Systems Exam Head: Present: Atraumatic, Normocephalic Pupils: Present: PERRL Extroacular Muscles: Present: EOMI Conjunctiva: Present: Normal Mouth: Present: Moist Mucous Membranes Neck: Present: Normal Range of Motion Respiratory/Chest: Present: Wheezes (Diffuse wheezing bilaterally. ), Rhonchi Cardiovascular: Present: Regular Rate and Rhythm, Normal S1, S2. No: Murmurs Abdomen: No: Tenderness, Distention, Peritoneal Signs Back: Present: Normal Inspection Upper Extremity: Present: Normal Inspection. No: Cyanosis, Edema Lower Extremity: Present: Normal Inspection. No: Edema Neurological: Present: GCS=15, CN II-XII Intact, Speech Normal Skin: Present: Warm, Dry, Normal Color. No: Rashes Psychiatric: Present: Alert, Oriented x 3, Normal Insight, Normal Concentration <Ivory Fontaine - Last Filed: 07/31/17 01:51> Vital Signs Temp Pulse Resp BP Pulse Ox 07/31/17 02:34 98.3 F 98 H 19 116/66 95 07/30/17 22:24 20 97 07/30/17 22:21 98.9 F 120 H 20 142/80 97 Medical Decision Making Reassessment Condition: Re-examined, Improving,but remains with symptoms <Ivory Fontaine - Last Filed: 07/31/17 01:51> <Mariano Cabrales - Last Filed: 07/31/17 02:36> ED Course and Treatment: 07/31/17 01:23 37-year-old male with a history of asthma with cough, asthma exacerbation Cbc; wbc;14.5 CMP; glucose; 147 cxr; no infiltrate, no effusion rapid flu; negative pt given 3 duonebs and solumedrol 125mg IV pt reassessment; pt with continued wheezing. magnesium added IV. case discussed with dr. ontiveros; will admit observational status to tele for asthma exacerbation with leukocytosis. all aspects of this case were discussed the attending of record. impression; asthma exacerbation, cough, leukocytosis admit to tele observational status (Ivory Fontaine) - Lab Interpretations Lab Results: 07/30/17 22:55 07/30/17 22:55 Lab Results 07/30/17 22:55: WBC 14.5 H D, RBC 4.74, Hgb 13.3 L D, Hct 38.9 L, MCV 82.1, MCH 28.1, MCHC 34.2, RDW 12.6, Plt Count 256, MPV 9.6, Gran % 81.4 H, Lymph % (Auto ) 11.0 L, [place] % (Auto) 6.7 H, Eos % (Auto) 0.8 L, Baso % (Auto) 0.1, Gran # 11.80 H, Lymph # (Auto) 1.6, [place] # (Auto) 1.0 H, Eos # (Auto) 0.1, Baso # (Auto ) 0.02 07/30/17 22:55: Sodium 138, Potassium 3.8, Chloride 104, Carbon Dioxide 19 L, Anion Gap 19, BUN 14, Creatinine 0.9, Est GFR ( Amer) > 60, Est GFR (Non- Af Amer) > 60, Random Glucose 147 H, Calcium 9.1, Total Bilirubin 0.3, AST 33, ALT 33, Alkaline Phosphatase 91, Total Protein 7.3, Albumin 4.2, Globulin 3.0, Albumin/Globulin Ratio 1.4 07/30/17 22:55: Influenza Typ A,B (EIA) Negative for flu a/b - RAD Interpretation Radiology Orders: 07/30/17 22:42 CHEST PORTABLE [RAD] Stat - Medication Orders Current Medication Orders: Albuterol/Ipratropium (Duoneb 3 Mg/0.5 Mg (3 Ml) Ud) 3 ml IH Q2H PRN PRN Reason: Shortness of Breath Albuterol/Ipratropium (Duoneb 3 Mg/0.5 Mg (3 Ml) Ud) 3 ml IH [id number] RACHEAL Last Admin: 07/31/17 02:21 Dose: Azithromycin (Zithromax 500mg In Ns) 500 mg in 250 mls @ 167 mls/hr IVPB STAT STA PRN Reason: Protocol Stop: 07/31/17 03:02 Ceftriaxone Sodium (Rocephin 1 Gram Ivpb) 1 gm in 100 mls @ 100 mls/hr IVPB DAILY RACHEAL PRN Reason: Protocol Azithromycin (Zithromax 500mg In Ns) 500 mg in 250 mls @ 167 mls/hr IVPB DAILY RACHEAL PRN Reason: Protocol Sodium Chloride (Sodium Chloride 0.9%) 1,000 mls @ 999 mls/hr IV .Q1H1M STA Stop: 07/31/17 03:32 Methylprednisolone (Solu-Medrol) 30 mg IVP Q12 RACHEAL Pantoprazole Sodium (Protonix Ec Tab) 40 mg PO 0600 RACHEAL Discontinued Medications Albuterol/Ipratropium (Duoneb 3 Mg/0.5 Mg (3 Ml) Ud) 3 ml IH STAT STA Stop: 07/30/17 22:43 Last Admin: 07/30/17 23:04 Dose: 3 ml Albuterol/Ipratropium (Duoneb 3 Mg/0.5 Mg (3 Ml) Ud) 3 ml IH STAT STA Stop: 07/31/17 00:26 Last Admin: 07/31/17 02:20 Dose: 3 ml Albuterol/Ipratropium (Duoneb 3 Mg/0.5 Mg (3 Ml) Ud) 3 ml IH STAT STA Stop: 07/31/17 01:33 Last Admin: 07/31/17 02:20 Dose: 3 ml Sodium Chloride (Sodium Chloride 0.9%) 1,000 mls @ 999 mls/hr IV .Q1H1M STA Stop: 07/30/17 23:42 Last Admin: 07/30/17 23:01 Dose: 999 mls/hr eMAR Start Stop Document 07/30/17 23:01 [email or web address] (Rec: 07/30/17 23:03 [email or web address] [facility] [employer]) Intravenous Solution Start Date 07/30/17 Start Time 23:03 End Date 07/30/17 Ceftriaxone Sodium (Rocephin 1 Gram Ivpb) 1 gm in 100 mls @ 200 mls/hr IVPB STAT STA PRN Reason: Protocol Stop: 07/31/17 02:02 Last Admin: 07/31/17 02:19 Dose: 200 mls/hr eMAR Start Stop Document 07/31/17 02:19 [email or web address] (Rec: 07/31/17 02:20 [email or web address] [facility] [employer]) Intravenous Solution Start Date 07/31/17 Start Time 02:19 End Date 07/31/17 Magnesium Sulfate 2 gm/ Sodium (Chloride) 104 mls @ 102 mls/hr IVPB ONCE ONE Stop: 07/31/17 02:35 Methylprednisolone (Solu-Medrol) 125 mg IVP STAT STA Stop: 07/30/17 22:43 Last Admin: 07/30/17 23:04 Dose: 125 mg IVP Administration Document 07/30/17 23:04 [email or web address] (Rec: 07/30/17 23:04 [email or web address] [facility]) Charges for Administration # of IVP Administrations 1 Potassium Chloride (K-Dur 20 Meq Er Tab) 40 meq PO STAT STA Stop: 07/31/17 01:51 - Scribe Statement The provider has reviewed the documentation as recorded by the Scribe <Azoia,Ivory T - Last Filed: 07/31/17 01:51> - PA / ELECTRONIC SPECIALIST / Resident Statement / has reviewed & agrees with the documentation as recorded. / has examined the patient and agrees with the treatment plan. <Mariano Cabrales - Last Filed: 07/31/17 02:36> - Scribe Statement Earnestine Benoit Provider Scribe Attestation: All medical record entries made by the Scribe were at my direction and personally dictated by me. I have reviewed the chart and agree that the record accurately reflects my personal performance of the history, physical exam, medical decision making, and the department course for this patient. I have also personally directed, reviewed, and agree with the discharge instructions and disposition. (Ivory Fontaine) Disposition/Present on Arrival - Present on Arrival Any Indicators Present on Arrival: No History of DVT/PE: No History of Uncontrolled Diabetes: No Urinary Catheter: No History of Decub. Ulcer: No History Surgical Site Infection Following: None - Disposition Have Diagnosis and Disposition been Completed?: Yes Disposition Time: 01:45 Patient Plan: Observation <Ivory Fontaine - Last Filed: 07/31/17 01:51> <Mariano Cabrales - Last Filed: 07/31/17 02:36> - Disposition Diagnosis: Exacerbation of asthma, Leukocytosis Disposition: HOSPITALIZED Patient Problems: Current Active Problems Problem Status Onset Exacerbation of asthma Acute Leukocytosis Acute Condition: FAIR Referrals: PCP,NO [Primary Care Provider] - Follow up with primary Forms: Diabetica (Par[place]ayan)
[2017-07-31] MEDS ORDERED: cefTRIAXone 1 gm 1 GM/100 ML BAG IVPB STA (01:33)
[2017-07-31] MEDS ORDERED: Azithromycin 500MG/NS 250ml 500 MG/250 ML BAG IVPB STA (01:33)
[2017-07-31] MEDS ORDERED: Magnesium Sulfate 2 GM in Sodium Chloride 0.9% 100 ML IVPB ONE (01:34)
[2017-07-31] MEDS ORDERED: Potassium Chloride 20 mEq ER Tab PO STA (01:50)
[2017-07-31] MEDS ORDERED: Albuterol-Ipratrop 3 mg / 0.5 (3 ml) UD IH PRN (01:57)
[2017-07-31] MEDS: Albuterol-Ipratrop 3 mg / 0.5 (3 ml) UD IH SCH ×4 (02:21→19:45)
--- NOTE | 2017-07-31 02:27 | CP.PCM.HP ---
<Liu Vidal - Last Filed: 07/31/17 02:20> History of Present Illness - History of Present Illness History of Present Illness: Medicine H&P: Dr. Greco Chief Complaint: Asthma Exacerbation HPI: Patient is a 36 year old male with a history of poorly controlled asthma with no prior intubations who presents to the [facility] ED with complaints of shortness of breath, for which he has been admitted several times. Patient states that his triggers tend to be dust and mites. Earlier today, he started feeling ill and began to have a cough productive of yellow sputum. He used his nebulizer which did not alleviate his shortness of breath. Patient denies fevers or chills at home. He was given a dose of azithro and rocephin in the ED as well as Mg Sulfate and 3 rounds of duonebs. Review of Systems: 12 point ROS obtained and negative except as per HPI Surgical History: Patient denies Medical History: Asthma Allergies: Dust, NKDA Social history: +Tobacco use, denies alcohol and illicit drugs Home Meds: Albuterol HFA 2 puff IH Q4, Albuteril HFA 2 puff IH q6, Albuterol 3ml IH q4 PRN, cyclobenzaprine, Ibuprofen Family history: Non-contributory PMD: Dr. Felix Present on Admission - Present on Admission Any Indicators Present on Admission: No Past Patient History - Infectious Disease Hx of Infectious Diseases: None - Tetanus Immunizations Tetanus Immunization: Unknown - Past Social History Smoking Status: Former Smoker - CARDIAC Hx Cardiac Disorders: No - PULMONARY Hx Asthma: Yes Hx Bronchitis: Yes Hx Chronic Obstructive Pulmonary Disease (COPD): Yes - NEUROLOGICAL Hx Neurological Disorder: No - HEENT Hx HEENT Problems: No - RENAL Hx Chronic Kidney Disease: No - ENDOCRINE/METABOLIC Hx Endocrine Disorders: No - HEMATOLOGICAL/ONCOLOGICAL Hx Blood Disorders: No - INTEGUMENTARY Hx Dermatological Problems: No - MUSCULOSKELETAL/RHEUMATOLOGICAL Hx Musculoskeletal Disorders: No Hx Falls: No - GASTROINTESTINAL Hx Gastrointestinal Disorders: No - GENITOURINARY/GYNECOLOGICAL Hx Genitourinary Disorders: No - PSYCHIATRIC Hx Psychophysiologic Disorder: No Hx Substance Use: No - SURGICAL HISTORY Hx Amputation: No Hx Cardiac Catheterization: No Hx Gastric Bypass Surgery: No Hx Hysterectomy: No Hx Joint Replacement: No Hx Kidney Transplant: No Hx Liver Transplant: No Hx Mastectomy: No Hx Musculoskeletal Surgery: No Hx Open Heart Surgery: No Hx Orthopedic Surgery: No Hx Splenectomy: No Hx Valve Replacement: No Other/Comment: REMOVAL OF KIDNEY STONES - ANESTHESIA Hx Anesthesia: Yes Hx Anesthesia Reactions: No Hx Malignant Hyperthermia: No Meds Allergies/Adverse Reactions: Allergies Allergy/AdvReac Type Severity Reaction Status Date / Time No Known Allergies Allergy Verified 07/30/17 22:21 Physical Exam - Constitutional Appears: Well - Head Exam Head Exam: ATRAUMATIC, NORMAL INSPECTION, NORMOCEPHALIC - Eye Exam Eye Exam: EOMI, Normal appearance, PERRL Pupil Exam: NORMAL ACCOMODATION, PERRL - ENT Exam ENT Exam: Mucous Membranes Moist, Normal Exam - Neck Exam Neck exam: Positive for: Normal Inspection - Respiratory Exam Respiratory Exam: Clear to Auscultation Bilateral, NORMAL BREATHING PATTERN - Cardiovascular Exam Cardiovascular Exam: REGULAR RHYTHM - GI/Abdominal Exam GI & Abdominal Exam: Normal Bowel Sounds, Soft. absent: Tenderness - Extremities Exam Extremities exam: Positive for: normal inspection - Back Exam Back exam: NORMAL INSPECTION - Neurological Exam Neurological exam: Alert, CN II-XII Intact, Normal Gait, Oriented x3, Reflexes Normal - Psychiatric Exam Psychiatric exam: Normal Affect, Normal Mood - Skin Skin Exam: Dry, Intact, Normal Color, Warm Results - Vital Signs Recent Vital Signs: Last Vital Signs Temp 98.9 F 07/30/17 22:21 Pulse 120 H 07/30/17 22:21 Resp 20 07/30/17 22:24 BP 142/80 07/30/17 22:21 Pulse Ox 97 07/30/17 22:24 - Labs Result Diagrams: 07/30/17 22:55 07/30/17 22:55 Labs: Laboratory Results - last 24 hr 07/30/17 07/30/17 07/30/17 22:55 22:55 22:55 WBC 14.5 H D RBC 4.74 Hgb 13.3 L D Hct 38.9 L MCV 82.1 MCH 28.1 MCHC 34.2 RDW 12.6 Plt Count 256 MPV 9.6 Gran % 81.4 H Lymph % (Auto) 11.0 L Pitkin % (Auto) 6.7 H Eos % (Auto) 0.8 L Baso % (Auto) 0.1 Gran # 11.80 H Lymph # (Auto) 1.6 Pitkin # (Auto) 1.0 H Eos # (Auto) 0.1 Baso # (Auto) 0.02 Sodium 138 Potassium 3.8 Chloride 104 Carbon Dioxide 19 L Anion Gap 19 BUN 14 Creatinine 0.9 Est GFR ( Amer) > 60 Est GFR (Non-Af Amer) > 60 Random Glucose 147 H Calcium 9.1 Total Bilirubin 0.3 AST 33 ALT 33 Alkaline Phosphatase 91 Total Protein 7.3 Albumin 4.2 Globulin 3.0 Albumin/Globulin Ratio 1.4 Influenza Typ A,B (EIA) Negative for flu a/b Assessment & Plan - Assessment and Plan (Free Text) Assessment: 36 year old male with history of poorly controlled asthma presenting with shortness of breath. Patient has been here several times in the past for these symptoms. White count elevated on admission with tachycardia but no other SIRS criteria and no apparent source of infection; blood pressure stable. Coverage for HCAP not necessary, as patient was in the hospital ~ a month ago but was not admitted. Chest XR negative. Patient is satting better after duonebs treatment, denies any chest pain at this time - Well's is 1.5/Low Risk. Plan Shortness of breath 2/2 Asthma Exacerbation VS Acute Bronchitis VS Acute Pneumonia - Blood culture, VBG shock pending - Duonebs RACHEAL and PRN - Solumedrol - Rocephin, Azithromycin GI/DVT Prophylaxis - Protonix/SCD (low Sherri score) <Rosa Greco - Last Filed: 07/31/17 06:29> Results - Vital Signs Recent Vital Signs: Last Vital Signs Temp 98.3 F 07/31/17 02:34 Pulse 98 H 07/31/17 02:34 Resp 19 07/31/17 02:34 BP 116/66 07/31/17 02:34 Pulse Ox 95 07/31/17 02:34 - Labs Result Diagrams: 07/30/17 22:55 07/30/17 22:55 Labs: Laboratory Results - last 24 hr 07/31/17 03:40 pO2 153 H VBG pH 7.39 VBG pCO2 34.0 L VBG HCO3 20.6 L VBG Total CO2 21.6 L VBG O2 Sat (Calc) 100.2 H VBG Base Excess -3.6 L VBG Potassium 4.3 Sodium 136.0 Chloride 106.0 Glucose 212 H Lactate 2.5 H FiO2 21.0 Venous Blood Potassium 4.3 Attending/Attestation - Attestation I have personally seen and examined this patient.: Yes I have fully participated in the care of the patient.: Yes I have reviewed all pertinent clinical information: Yes Notes (Text): 07/31/17 06:28 Patient was seen when he was in the ER in bed # 17. Agree with history , physical examination , assessment and plan. Admits to use of marijuana.
[2017-07-31] MEDS ORDERED: Sodium Chloride 0.9% 1,000 ML IV STA (02:32)
[2017-07-31 04:24] LABS: VENOUS BLOOD GAS BASE EXCESS -3.6 mmol/L (0.0-2.0); VENOUS BLOOD GAS PO2 153 mm/Hg (30-55); VENOUS BLOOD PH 7.39 (7.32-7.43)
[2017-07-31] MEDS ORDERED: Pantoprazole 40 mg EC Tab PO SCH (06:00)
--- NOTE | 2017-07-31 08:41 | RAD ---
HISTORY: Shortness of breath, cough and wheezing COMPARISON: 03/25/2017 FINDINGS: LUNGS: No active pulmonary disease. PLEURA: No significant pleural effusion identified, no pneumothorax apparent. CARDIOVASCULAR: Normal. OSSEOUS STRUCTURES: No significant abnormalities. VISUALIZED UPPER ABDOMEN: Normal. OTHER FINDINGS: None. IMPRESSION: No active disease. No significant interval change compared to the prior examination(s).
--- NOTE | 2017-07-31 08:51 | CARD ---
APPROVED REPORT EKG Measurement Heart [id number] <Conclusion> Sinus tachycardia rSr Pattern V1.
[2017-07-31] MEDS: MethylPREDNISolone 40 mg Vial IVP SCH ×2 (09:23→21:40)
[2017-07-31] MEDS ORDERED: cefTRIAXone 1 gm 1 GM/100 ML BAG IVPB SCH (10:00)
--- NOTE | 2017-07-31 19:31 | CP.PCM.PN ---
Subjective - Date & Time of Evaluation Date of Evaluation: 07/31/17 Time of Evaluation: 18:50 - Subjective Subjective: PGY-[address] Ramirez CC: HR 130s S: Mr Moore, 36 year old male with a history of poorly controlled asthma with no prior intubation was admitted under observation for asthma exacerbation. I got paged for tachycardia 130s. Pt had neb treatment at 2pm and 6pm. Tele showed sinus tachycardia at 4:30 pm and 6:30pm. Each episode lasts less than 2 minutes. He got duoneb again at 8pm. Pt remains sinus tach at 100s-110. Pt denies F/c, palpitation, CP, sob, dizziness. RN have seen pt walking around the nurse station aroung 6-7pm O: 141/68, RR 21, 94 RA GEN NAD HEENT EOMI, moist mucosa Card Tachycardia 105, s1 s2 no murmur Pulm CTAb/l, no w/r/r, good effort Ext no edema A/P: Sinus tachycardia due to side effect of albuterol - Asymtompatic, VS stable - Continue observe HR. If future treatment is associated with tachycardia up to 130, will change to xopenex Objective - Vital Signs/Intake and Output Vital Signs (last 24 hours): Temp Pulse Resp BP Pulse Ox 98.1 F 104 H 21 141/68 94 L 07/31/17 17:43 07/31/17 17:43 07/31/17 17:43 07/31/17 17:43 07/31/17 06:00 - Medications Medications: Current Medications Albuterol/Ipratropium (Duoneb 3 Mg/0.5 Mg (3 Ml) Ud) 3 ml IH Q2H PRN PRN Reason: Shortness of Breath Last Admin: 07/31/17 17:55 Dose: 3 ml Albuterol/Ipratropium (Duoneb 3 Mg/0.5 Mg (3 Ml) Ud) 3 ml IH [id number] RACHEAL Last Admin: 07/31/17 14:01 Dose: 3 ml Ceftriaxone Sodium (Rocephin 1 Gram Ivpb) 1 gm in 100 mls @ 100 mls/hr IVPB DAILY RACHEAL PRN Reason: Protocol Stop: 08/04/17 10:59 Last Admin: 07/31/17 09:23 Dose: 100 mls/hr Azithromycin (Zithromax 500mg In Ns) 500 mg in 250 mls @ 167 mls/hr IVPB DAILY RACHEAL PRN Reason: Protocol Methylprednisolone (Solu-Medrol) 30 mg IVP Q12 RACHEAL Last Admin: 07/31/17 09:23 Dose: 30 mg Pantoprazole Sodium (Protonix Ec Tab) 40 mg PO 0600 RACHEAL Last Admin: 07/31/17 06:29 Dose: 40 mg
[2017-08-01] MEDS: Albuterol-Ipratrop 3 mg / 0.5 (3 ml) UD IH SCH (01:08)
[2017-08-01] MEDS ORDERED: cefTRIAXone 1 gm 1 GM/100 ML BAG IVPB SCH (02:00)
[2017-08-01] MEDS ORDERED: Azithromycin 500MG/NS 250ml 500 MG/250 ML BAG IVPB SCH ×2 (02:00→10:00)
[2017-08-01 02:27] VITALS: BP 100/49; PULSE 89; RESP 18; TEMP 97.7; O2SAT 97
== END 2017-08-01 04:40 | disposition left against medical advice (07) ==
LOC: ED 22:12 → ERH 07-31 02:30 → 2RSO 07-31 04:21
PROVIDERS: ADMIT Hospitalist; ATTEND Internal Medicine
DX: J45.901 Unspecified asthma with (acute) exacerbation (principal); R00.0 Tachycardia, unspecified; T48.6X5A Adverse effect of antiasthmatics, initial encounter; D72.829 Elevated white blood cell count, unspecified; F17.210 Nicotine dependence, cigarettes, uncomplicated; J44.9 Chronic obstructive pulmonary disease, unspecified; Z79.899 Other long term (current) drug therapy; Z87.442 Personal history of urinary calculi
CPT/HCPCS: 71045; 80053; 82803; 85025; 87040; 87804; 93005; 94640; 94760; 96374; 99285; G0378; J0696; J2920; J2930; J3475; J7040

== ENCOUNTER 2017-10-20 10:26 | Inpatient (IN) | payer MEDICAID, OTHER ==
[2017-10-20] MEDS ORDERED: Levalbuterol 1.25 MG/3 ML Inhal Soln UD IH STA ×3 (10:48→11:19)
[2017-10-20] MEDS ORDERED: Albuterol-Ipratrop 3 mg / 0.5 (3 ml) UD IH STA (10:48)
[2017-10-20] MEDS ORDERED: Magnesium 2 gm/50 ml NS 2 GM/50 ML BAG IVPB ONE (12:59)
--- NOTE | 2017-10-20 13:31 | ED PDOC ---
Arrival/HPI - General Chief Complaint: Shortness Of Breath Time Seen by Provider: 10/20/17 10:48 Historian: Patient - History of Present Illness Narrative History of Present Illness (Text): 10/20/17 13:27 37yo male with pmhx of Asthma who present with complaint of wheezing, nonproductive cough, SOB since last night. Notes that these are his typical Asthma symptoms. states he used his neb treatment last night and this morning without relieve. He reports history of hospitalizations secondary to asthma. Never intubated and not steroid dependent. He smokes cigarette. Past Medical History - Provider Review Nursing Documentation Reviewed: Yes - Past History Past History: No Previous - Infectious Disease Hx of Infectious Diseases: None - Tetanus Immunization Tetanus Immunization: Unknown - Cardiac Hx Cardiac Disorders: No - Pulmonary Hx Asthma: Yes Hx Chronic Obstructive Pulmonary Disease (COPD): Yes Hx Pneumonia: Yes - Neurological Hx Neurological Disorder: No - HEENT Hx HEENT Disorder: No - Renal Hx Renal Disorder: Yes Hx Kidney Stones: Yes (Removed) - Endocrine/Metabolic Hx Endocrine Disorders: No - Hematological/Oncological Hx Blood Disorders: No - Integumentary Hx Dermatological Disorder: No - Musculoskeletal/Rheumatological Hx Musculoskeletal Disorders: No - Gastrointestinal Hx Gastrointestinal Disorders: Yes Hx Gastroesophageal Reflux: Yes - Genitourinary/Gynecological Hx Genitourinary Disorders: No - Psychiatric Hx Psychophysiologic Disorder: No Hx Substance Use: No - Surgical History Other/Comment: REMOVAL OF KIDNEY STONES - Anesthesia Hx Anesthesia: Yes Hx Anesthesia Reactions: No Hx Malignant Hyperthermia: No - Suicidal Assessment Feels Threatened In Home Enviroment: No Family/Social History - Physician Review Nursing Documentation Reviewed: Yes Family/Social History: Unknown Family HX Smoking Status: Light Smoker < 10 Cigarettes Daily Hx Alcohol Use: Yes Frequency of alcohol use: Socially Hx Substance Use: No Allergies/Home Meds Allergies/Adverse Reactions: Allergies No Known Allergies Allergy (Verified 10/20/17 19:26) Home Medications: Home Meds Medication Instructions Recorded Confirmed Albuterol 0.083% [Albuterol 0.083% 3 ml NEB Q6 PRN 10/20/17 10/20/17 Inhal Kianna (2.5 mg/3 ml) UD] Review of Systems - Review of Systems Constitutional: Normal Eyes: Normal ENT: Normal Respiratory: SOB, Cough, Wheezing Cardiovascular: Normal Gastrointestinal: Normal Genitourinary Male: Normal Musculoskeletal: Normal Skin: Normal Neurological: Normal Endocrine: Normal Hemo/Lymphatic: Normal Psychiatric: Normal Physical Exam Vital Signs Reviewed: Yes Vital Signs Temp Pulse Resp BP Pulse Ox 10/20/17 17:11 101 H 18 122/62 94 L 10/20/17 13:14 89 18 126/72 93 L 10/20/17 12:51 99 H 18 134/72 95 10/20/17 11:00 16 10/20/17 10:42 99.4 F 117 H 21 147/89 94 L Temperature: Afebrile Blood Pressure: Normal Pulse: Tachycardic Respiratory Rate: Normal Appearance: Positive for: Well-Appearing, Non-Toxic, Comfortable Pain Distress: None Mental Status: Positive for: Alert and Oriented X 3 - Systems Exam Head: Present: Atraumatic, Normocephalic Pupils: Present: PERRL Extroacular Muscles: Present: EOMI Conjunctiva: Present: Normal Mouth: Present: Moist Mucous Membranes Neck: Present: Normal Range of Motion Respiratory/Chest: Present: Good Air Exchange, Wheezes (Diffuse wheeze. Expiratory >inspiratory). No: Respiratory Distress, Accessory Muscle Use Cardiovascular: Present: Regular Rate and Rhythm, Normal S1, S2. No: Murmurs Abdomen: No: Tenderness, Distention, Peritoneal Signs Back: Present: Normal Inspection Upper Extremity: Present: Normal Inspection. No: Cyanosis, Edema Lower Extremity: Present: Normal Inspection. No: Edema Neurological: Present: GCS=15, CN II-XII Intact, Speech Normal Skin: Present: Warm, Dry, Normal Color. No: Rashes Psychiatric: Present: Alert, Oriented x 3, Normal Insight, Normal Concentration Medical Decision Making ED Course and Treatment: 10/20/17 20:11 PT present to ED with diffuse wheezing. He was in mild respiratory distress and tachy. He was started on Xopenx and Solu medrol immediately. On re evaluation he continued to wheeze and Magnesium sulfate was given. On re evaluation pt continued to wheeze. CXR NAD EKG NSR with incomplete RBBB @96bpm He was admitted for Status Asthmaticus Case was [facility] and she accepted pt for admission. - RAD Interpretation Radiology Orders: 10/20/17 15:55 CHEST PORTABLE [RAD] Stat - Medication Orders Current Medication Orders: Guaifenesin/Dextromethorphan (Mucinex-Dm 600-30 Mg) 1 tab PO BID RACHEAL Last Admin: 10/20/17 18:13 Dose: 1 tab Levalbuterol HCl (Xopenex) 0.63 mg IH Q2 PRN PRN Reason: Shortness of Breath Levalbuterol HCl (Xopenex) 0.63 mg IH [id number] RACHEAL Last Admin: 10/20/17 19:52 Dose: 0.63 mg Methylprednisolone (Solu-Medrol) 40 mg IVP Q12 RACHEAL Pantoprazole Sodium (Protonix Ec Tab) 40 mg PO 0600 RACHEAL Discontinued Medications Albuterol/Ipratropium (Duoneb 3 Mg/0.5 Mg (3 Ml) Ud) 3 ml IH STAT STA Stop: 10/20/17 10:49 Last Admin: 10/20/17 10:50 Dose: 3 ml Magnesium 2 gm/50 ml NS (Magnesium Sulfate 2 Gm/50 Ml Ns) 2 gm in 50 mls @ 50 mls/hr IVPB ONCE ONE Stop: 10/20/17 13:58 Last Admin: 10/20/17 13:14 Dose: 50 mls/hr eMAR Start Stop Document 10/20/17 13:14 HI (Rec: 10/20/17 13:14 HI [id number]) Intravenous Solution Start Date 10/20/17 Start Time 13:14 Levalbuterol HCl (Xopenex) 1.25 mg IH STAT STA Stop: 10/20/17 10:49 Last Admin: 10/20/17 11:00 Dose: 1.25 mg Levalbuterol HCl (Xopenex) 1.25 mg IH STAT STA Stop: 10/20/17 10:50 Last Admin: 10/20/17 11:15 Dose: 1.25 mg Levalbuterol HCl (Xopenex) 1.25 mg IH STAT STA Stop: 10/20/17 11:20 Last Admin: 10/20/17 11:36 Dose: 1.25 mg Levalbuterol HCl (Xopenex) 0.63 mg IH [id number] PRN PRN Reason: Shortness of Breath Methylprednisolone (Solu-Medrol) 125 mg IVP STAT STA Stop: 10/20/17 10:49 Last Admin: 10/20/17 10:59 Dose: 125 mg IVP Administration Document 10/20/17 10:59 STEPHANI (Rec: 10/20/17 10:59 STEPHANI [id number]) Charges for Administration # of IVP Administrations 1 Disposition/Present on Arrival - Present on Arrival Any Indicators Present on Arrival: No History of DVT/PE: No History of Uncontrolled Diabetes: No Urinary Catheter: No History of Decub. Ulcer: No History Surgical Site Infection Following: None - Disposition Have Diagnosis and Disposition been Completed?: Yes Diagnosis: Exacerbation of asthma Disposition: HOSPITALIZED Disposition Time: 15:00 Patient Plan: Admission Condition: STABLE
--- NOTE | 2017-10-20 16:17 | RAD ---
Date of service: 10/20/2017 HISTORY: cough COMPARISON: 07/30/2017. FINDINGS: LUNGS: The lungs are hyperinflated and there is peribronchial thickening with chronic changes in both lungs. No focal consolidation. PLEURA: No significant pleural effusion identified, no pneumothorax apparent. CARDIOVASCULAR: Normal. OSSEOUS STRUCTURES: No significant abnormalities. VISUALIZED UPPER ABDOMEN: Normal. OTHER FINDINGS: None. IMPRESSION: No active pulmonary disease. COPD.
[2017-10-20] MEDS ORDERED: Levalbuterol 0.63 MG/3 ML Inhal Soln UD IH PRN ×2 (16:40)
[2017-10-20 16:46] LABS: EOS % 0.2 % (1.5-5.0); GRAN # 8.73 (1.4-6.5); GRAN % 90.4 % (50.0-68.0); HEMOGLOBIN 14.7 g/dL (14.0-18.0); LYMPH # 0.8 (1.2-3.4); LYMPH % 7.9 % (22.0-35.0); MEAN CELL VOLUME 80.6 fl (80.0-105.0); MEAN CORPUSCULAR HEMOGLOBIN 27.9 pg (25.0-35.0); MEAN CORPUSCULAR HGB CONC 34.6 g/dl (31.0-37.0); MEAN PLATELET VOLUME 9.8 fl (7.0-11.0); MONO # 0.1 (0.1-0.6); MONO % 1.5 % (1.0-6.0); PLATELET COUNT 209 10^3/uL (120.0-450.0); RBC 5.27 10^6/uL (3.5-6.1); RED CELL DISTRIBUTION WIDTH 13.7 % (11.5-14.5); WHITE BLOOD COUNT 9.7 10^3/ul (4.5-11.0)
[2017-10-20 16:59] LABS: ALB/GLOB RATIO 1.4 (1.1-1.8); ALBUMIN 4.7 g/dL (3.0-4.8); ALT/SGPT 72 U/L (7-56); AST/SGOT 35 U/L (17-59); BLOOD UREA NITROGEN 12 mg/dL (7-21); CALCIUM 9.6 mg/dL (8.4-10.5); GFR AFRICAN-AMERICAN > 60; GFR NON-AFRICAN AMERICAN > 60
--- NOTE | 2017-10-20 17:09 | CP.PCM.HP ---
Addendum entered and electronically signed by Blayne Gold DO 10/20/17 20:08: Assessments continued: Elevated Liver Enzymes Patient's lab work is significant for an elevated ALT of 72. Patient admits to occasional ETOH consumption socially. Will continue to monitor. Original Note: <Blayne Gold - Last Filed: 10/20/17 17:44> History of Present Illness - History of Present Illness History of Present Illness: Blayne Gold, PGY-1 History and Physical for Hospitalist Service Mr. Moore is a 37 year old M with a past history of Asthma (generally controlled with albuterol inhaler, a nebulizer and advair) who presented with shortness of breath since Thursday morning. Patient recalls returning from a weekend trip to [place] Thursday evening, at which point patient began using his inhaler over 80 times before admission. Patient reports congestion and cough which is productive of beige sputum. Patient had 2 nebulizer treatments at home before arriving at hospital. Generally, patient reports being woken up once a week from sleep due to shortness of breath and four times over the course of a month. Patient has only been intubated as a premature infant, but not since. Of note, patient worked for an [employer] before his breathing issues caused him to leave. Patient is also a 1/2 pack a day smoker, and lives with his girlfriend who smokes as well. Patient denies chest pain, abdominal pain, palpitations, fevers, chills, dizziness, sick contacts and recent travel. PMHx: Asthma PSHx: Kidney stone removal Allergies: NKDA Social: 1/2 pack a day since 2016 when son , ETOH socially, denies IVDU. Worked with acids, chemical exposures at [employer] in [facility] Hx: Noncontributory Meds: Nebulizer, advair, albuterol inhaler PRN PMD: Dr. Antoine ([place]) Insurance: currently none per patient, in between plans Pharmacy: [facility] [place] pharmacy and [facility] Present on Admission - Present on Admission Any Indicators Present on Admission: No History of DVT/PE: No History of Uncontrolled Diabetes: No Review of Systems - Review of Systems All systems: reviewed and no additional remarkable complaints except Review of Systems: as referenced in 12 point ROS and discussed in HPI. Past Patient History - Infectious Disease Hx of Infectious Diseases: None - Tetanus Immunizations Tetanus Immunization: Unknown - Past Social History Smoking Status: Light Smoker < 10 Cigarettes Daily - CARDIAC Hx Cardiac Disorders: No - PULMONARY Hx Asthma: Yes Hx Chronic Obstructive Pulmonary Disease (COPD): Yes Hx Pneumonia: Yes - NEUROLOGICAL Hx Neurological Disorder: No - HEENT Hx HEENT Problems: No - RENAL Hx Chronic Kidney Disease: Yes Hx Kidney Stones: Yes (Removed) - ENDOCRINE/METABOLIC Hx Endocrine Disorders: No - HEMATOLOGICAL/ONCOLOGICAL Hx Blood Disorders: No - INTEGUMENTARY Hx Dermatological Problems: No - MUSCULOSKELETAL/RHEUMATOLOGICAL Hx Musculoskeletal Disorders: No - GASTROINTESTINAL Hx Gastrointestinal Disorders: Yes Hx Gastroesophageal Reflux: Yes - GENITOURINARY/GYNECOLOGICAL Hx Genitourinary Disorders: No - PSYCHIATRIC Hx Psychophysiologic Disorder: No Hx Substance Use: No - SURGICAL HISTORY Other/Comment: REMOVAL OF KIDNEY STONES - ANESTHESIA Hx Anesthesia: Yes Hx Anesthesia Reactions: No Hx Malignant Hyperthermia: No Meds Allergies/Adverse Reactions: Allergies Allergy/AdvReac Type Severity Reaction Status Date / Time No Known Allergies Allergy Verified 10/20/17 19:26 Physical Exam - Constitutional Appears: Well, Non-toxic, No Acute Distress - Head Exam Head Exam: ATRAUMATIC, NORMOCEPHALIC - Eye Exam Eye Exam: EOMI, Normal appearance, PERRL Pupil Exam: NORMAL ACCOMODATION - ENT Exam ENT Exam: Mucous Membranes Moist, Normal Exam - Neck Exam Neck exam: Positive for: Normal Inspection. Negative for: Lymphadenopathy, Tenderness - Respiratory Exam Respiratory Exam: Wheezes. absent: Respiratory Distress, Stridor Additional comments: throughout lung irene - Cardiovascular Exam Cardiovascular Exam: RRR, +S1, +S2 - GI/Abdominal Exam GI & Abdominal Exam: Normal Bowel Sounds, Soft. absent: Tenderness - Back Exam Back exam: CVA tenderness (L) - Neurological Exam Neurological exam: Alert, CN II-XII Intact, Oriented x3 - Psychiatric Exam Psychiatric exam: Normal Affect, Normal Mood - Skin Skin Exam: Intact, Normal Color, Warm Results - Vital Signs Recent Vital Signs: Last Vital Signs Temp 99.4 F 10/20/17 10:42 Pulse 117 H 10/20/17 10:42 Resp 21 10/20/17 10:42 BP 147/89 10/20/17 10:42 Pulse Ox 94 L 10/20/17 10:42 - Labs Result Diagrams: 10/20/17 16:40 10/20/17 16:40 Labs: Laboratory Results - last 24 hr 10/20/17 10/20/17 16:40 16:40 WBC 9.7 D RBC 5.27 Hgb 14.7 Hct 42.5 MCV 80.6 MCH 27.9 MCHC 34.6 RDW 13.7 Plt Count 209 MPV 9.8 Gran % 90.4 H Lymph % (Auto) 7.9 L [place] % (Auto) 1.5 Eos % (Auto) 0.2 L Baso % (Auto) 0.0 Gran # 8.73 H Lymph # (Auto) 0.8 L [place] # (Auto) 0.1 Eos # (Auto) 0.0 Baso # (Auto) 0.00 Sodium 140 Potassium 4.3 Chloride 106 Carbon Dioxide 19 L Anion Gap 20 BUN 12 Creatinine 0.8 Est GFR ( Amer) > 60 Est GFR (Non-Af Amer) > 60 Random Glucose 138 H Calcium 9.6 Total Bilirubin 0.6 AST 35 ALT 72 H Alkaline Phosphatase 97 Total Protein 8.1 Albumin 4.7 Globulin 3.4 Albumin/Globulin Ratio 1.4 Assessment & Plan - Assessment and Plan (Free Text) Assessment: Mr. Moore is a 37 year old M with a PMHx of asthma who presented with a 2 day history of shortness of breath. Acute Asthma exacerbation - CXR showed no active disease and COPD - patient received xopenox and steroids in ED (no Duonebs due to tachycardia) - patient placed on xopenex 0.63 mg q6 and 0.63 mg q2 PRN - patient receiving mucinex 1 tab BID for productive cough - patient on solu-medrol 40 IVP q12 - follow up peak flow to evaluate baseline status GI/DVT Prophylaxis - Protonix 40 mg - SCD's in place Disposition Patient placed on remote tele to monitor his tachycardia and hypertension upon admission Patient seen, case reviewed, and plan agreed upon with Dr. Andres Ramirez. Blayne Gold, PGY-1 <Radha Ramirez - Last Filed: 10/21/17 07:45> Results - Vital Signs Recent Vital Signs: Last Vital Signs Temp 98 F 10/20/17 22:34 Pulse 87 10/20/17 22:34 Resp 18 10/20/17 22:34 BP 122/62 10/20/17 22:34 Pulse Ox 95 07/17/18 17:53 - Labs Result Diagrams: 10/21/17 06:30 10/21/17 06:30 Labs: Laboratory Results - last 24 hr 10/20/17 10/20/17 10/21/17 16:40 16:40 06:30 WBC 9.7 D 14.8 H D RBC 5.27 4.90 Hgb 14.7 13.6 L Hct 42.5 40.1 L MCV 80.6 81.8 MCH 27.9 27.8 MCHC 34.6 33.9 RDW 13.7 14.1 Plt Count 209 237 MPV 9.8 10.4 Gran % 90.4 H 84.7 H Lymph % (Auto) 7.9 L 9.8 L [place] % (Auto) 1.5 5.5 Eos % (Auto) 0.2 L 0.0 L Baso % (Auto) 0.0 0.0 Gran # 8.73 H 12.51 H Lymph # (Auto) 0.8 L 1.5 [place] # (Auto) 0.1 0.8 H Eos # (Auto) 0.0 0.0 Baso # (Auto) 0.00 0.00 Neutrophils % (Manual) 94 H Lymphocytes % (Manual) 4 L Monocytes % (Manual) 2 Platelet Evaluation Normal Sodium 140 Potassium 4.3 Chloride 106 Carbon Dioxide 19 L Anion Gap 20 BUN 12 Creatinine 0.8 Est GFR ( Amer) > 60 Est GFR (Non-Af Amer) > 60 Random Glucose 138 H Calcium 9.6 Total Bilirubin 0.6 AST 35 ALT 72 H Alkaline Phosphatase 97 Total Protein 8.1 Albumin 4.7 Globulin 3.4 Albumin/Globulin Ratio 1.4 10/21/17 06:30 WBC RBC Hgb Hct MCV MCH MCHC RDW Plt Count MPV Gran % Lymph % (Auto) [place]ac[place] % (Auto) Eos % (Auto) Baso % (Auto) Gran # Lymph # (Auto) [place] # (Auto) Eos # (Auto) Baso # (Auto) Neutrophils % (Manual) Lymphocytes % (Manual) Monocytes % (Manual) Platelet Evaluation Sodium 140 Potassium 4.4 Chloride 105 Carbon Dioxide 20 L Anion Gap 19 BUN 12 Creatinine 0.7 L Est GFR ( Amer) > 60 Est GFR (Non-Af Amer) > 60 Random Glucose 136 H Calcium 9.0 Total Bilirubin 0.3 AST 28 ALT 60 H Alkaline Phosphatase 85 Total Protein 7.7 Albumin 4.4 Globulin 3.2 Albumin/Globulin Ratio 1.4 Attending/Attestation - Attestation I have personally seen and examined this patient.: Yes I have fully participated in the care of the patient.: Yes I have reviewed all pertinent clinical information: Yes Notes (Text): 10/20/17 37 year old male with past medical history of active tobacco use and asthma presents with asthma exacerbation. CXR is negative. EKG is pending. Sinus tachycardia and moderate wheezing on examination. Continue with iv solumedrol and xopenex. He was counselled on smoking cessations. Some labs and EKG are still pending at time of admission. Radha Ramirez MD Hospitalist.
[2017-10-20 17:50] LABS: LYMPHOCYTE 4 % (22.0-35.0); MONOCYTE 2 % (1.0-6.0); NEUTROPHIL 94 % (50.0-70.0); PLATELET ESTIMATE NORMAL (NORMAL)
[2017-10-20] MEDS: guaiFENesin-DM 600-30 mg ER Tab PO SCH (18:13)
[2017-10-20] MEDS: Levalbuterol 0.63 MG/3 ML Inhal Soln UD IH SCH (19:52)
[2017-10-20] MEDS: MethylPREDNISolone 40 mg Vial IVP SCH (21:31)
[2017-10-20 22:47] VITALS: BMI 31.2
[2017-10-20] MEDS ORDERED: Pneumococcal 23-Valent Vaccine IM ONE (22:47)
[2017-10-21] MEDS: Levalbuterol 0.63 MG/3 ML Inhal Soln UD IH SCH ×2 (01:00→07:43)
[2017-10-21] MEDS: Pantoprazole 40 mg EC Tab PO SCH (05:28)
--- NOTE | 2017-10-21 06:20 | CP.PCM.PN ---
<Blayne Gold - Last Filed: 10/21/17 12:49> Subjective - Date & Time of Evaluation Date of Evaluation: 10/21/17 Time of Evaluation: 06:14 - Subjective Subjective: Blayne Gold PGY-1 Progress Note for Hospitalist Service Patient was seen and evaluated at bedside. Patient reports vomiting food and mucus a few times overnight. Denies CP, palpitations, abdominal pain, and weakness. Reports breathing and cough has improved from treatments. Objective - Vital Signs/Intake and Output Vital Signs (last 24 hours): Temp Pulse Resp BP Pulse Ox 98 F 87 18 122/62 95 10/20/17 22:34 10/20/17 22:34 10/20/17 22:34 10/20/17 22:34 10/20/17 17:53 Intake and Output: 10/20/17 10/21/17 18:59 06:59 Intake Total 540 Balance 540 - Medications Medications: Current Medications Guaifenesin/Dextromethorphan (Mucinex-Dm 600-30 Mg) 1 tab PO BID [facility] Last Admin: 10/20/17 18:13 Dose: 1 tab Levalbuterol HCl (Xopenex) 0.63 mg IH Q2 PRN PRN Reason: Shortness of Breath Levalbuterol HCl (Xopenex) 0.63 mg IH [id number] [facility] Last Admin: 10/21/17 01:00 Dose: 0.63 mg Methylprednisolone (Solu-Medrol) 40 mg IVP Q12 [facility] Last Admin: 10/20/17 21:31 Dose: 40 mg Pantoprazole Sodium (Protonix Ec Tab) 40 mg PO 0600 [facility] Last Admin: 10/21/17 05:28 Dose: 40 mg - Labs Labs: 10/20/17 16:40 10/20/17 16:40 - Constitutional Appears: Well, No Acute Distress - Head Exam Head Exam: ATRAUMATIC, NORMAL INSPECTION, NORMOCEPHALIC - Eye Exam Eye Exam: EOMI, Normal appearance, PERRL Pupil Exam: NORMAL ACCOMODATION, PERRL - ENT Exam ENT Exam: Mucous Membranes Moist, Normal Exam Additional comments: patient on 2L nasal cannula - Neck Exam Neck Exam: Full ROM, Normal Inspection. absent: Lymphadenopathy - Respiratory Exam Respiratory Exam: Clear to Ausculation Bilateral, NORMAL BREATHING PATTERN - Cardiovascular Exam Cardiovascular Exam: RRR, +S1, +S2 - GI/Abdominal Exam GI & Abdominal Exam: Soft, Normal Bowel Sounds. absent: Guarding, Tenderness, Organomegaly - Back Exam Back Exam: absent: CVA tenderness (L), CVA tenderness (R) - Neurological Exam Neurological Exam: Alert, Awake, Normal Gait, Oriented x3 - Psychiatric Exam Psychiatric exam: Normal Affect, Normal Mood Assessment and Plan - Assessment and Plan (Free Text) Assessment: Mr. Moore is a 37 year old male with no significant past medical history who presented with shortness of breath 2/2 an asthma exacerbation. Acute Asthma exacerbation - CXR showed no active disease and COPD - Patient's wheezing has improved since admission yesterday. - Tapered solu-medrol to 30 mg IVP q12 - patient received xopenox and steroids in ED (no Duonebs due to tachycardia) - patient transitioned from xopenex 0.63 mg q6 and 0.63 mg q2 PRN to duonebs 3mL q4 and 3mL q2 PRN due to resolved tachycardia - patient receiving mucinex 1 tab BID for productive cough - follow up peak flow to evaluate baseline status - f/u AM labs Vomiting - CLD currently - Protonix 40 mg - f/u Abdominal U/S - Zofran 4 mg q6 PRN Smoking Cessation - Patient educated about smoking cessation and recommended to avoid environmental exposures - patient expressed interest in nicotine gum upon discharge GI/DVT Prophylaxis - Protonix 40 mg - SCD's in place Patient seen, case reviewed, and plan agreed upon with Dr. Andres Ramirez. Blayne Gold, PGY-1 <Radha Ramirez - Last Filed: 10/21/17 13:24> Objective - Vital Signs/Intake and Output Vital Signs (last 24 hours): Temp Pulse Resp BP Pulse Ox 98.3 F 87 19 141/92 H 99 10/21/17 08:04 10/21/17 08:04 10/21/17 08:04 10/21/17 08:04 10/21/17 08:04 - Medications Medications: Current Medications Albuterol/Ipratropium (Duoneb 3 Mg/0.5 Mg (3 Ml) Ud) 3 ml IH [id number] [facility] Last Admin: 10/21/17 13:16 Dose: 3 ml Albuterol/Ipratropium (Duoneb 3 Mg/0.5 Mg (3 Ml) Ud) 3 ml IH Q2H PRN PRN Reason: Shortness of Breath Guaifenesin/Dextromethorphan (Mucinex-Dm 600-30 Mg) 1 tab PO BID [facility] Last Admin: 10/21/17 09:51 Dose: 1 tab Methylprednisolone (Solu-Medrol) 30 mg IVP Q12 [facility] Ondansetron HCl (Zofran Inj) 4 mg IVP Q6H PRN PRN Reason: Nausea/Vomiting Last Admin: 10/21/17 09:51 Dose: 4 mg Pantoprazole Sodium (Protonix Ec Tab) 40 mg PO 0600 [facility] Last Admin: 10/21/17 05:28 Dose: 40 mg Attending/Attestation - Attestation I have personally seen and examined this patient.: Yes I have fully participated in the care of the patient.: Yes I have reviewed all pertinent clinical information, including history, physical exam and plan: Yes Notes (Text): 10/21/17 13:21 37 year old male with past medical history of active tobacco use and asthma presented with asthma exacerbation. He is on duonebs and iv solumedrol. Still wheezing today but slowly improving; will taper solumedrol to 30 mg q12h today. He was counselled on smoking cessation. Leukocytosis likely secondary to iv steroids. CXR was negative. Will continue to monitor. This morning he complains of nausea/vomiting. Denies any abdominal pain. ALT slightly elevated. US abdomen is ordered. Will scale diet down to liquids from now and continue with zofran prn and protonix. UTox was ordered. Radha Ramirez MD Hospitalist.
[2017-10-21 07:21] LABS: GRAN # 12.51 (1.4-6.5); GRAN % 84.7 % (50.0-68.0); HEMOGLOBIN 13.6 g/dL (14.0-18.0); LYMPH # 1.5 (1.2-3.4); LYMPH % 9.8 % (22.0-35.0); MEAN CELL VOLUME 81.8 fl (80.0-105.0); MEAN CORPUSCULAR HEMOGLOBIN 27.8 pg (25.0-35.0); MEAN CORPUSCULAR HGB CONC 33.9 g/dl (31.0-37.0); MEAN PLATELET VOLUME 10.4 fl (7.0-11.0); MONO # 0.8 (0.1-0.6); MONO % 5.5 % (1.0-6.0); RBC 4.9 10^6/uL (3.5-6.1); RED CELL DISTRIBUTION WIDTH 14.1 % (11.5-14.5); WHITE BLOOD COUNT 14.8 10^3/ul (4.5-11.0)
[2017-10-21 07:39] LABS: ALB/GLOB RATIO 1.4 (1.1-1.8); ALBUMIN 4.4 g/dL (3.0-4.8); ALT/SGPT 60 U/L (7-56); AST/SGOT 28 U/L (17-59); BLOOD UREA NITROGEN 12 mg/dL (7-21); GFR AFRICAN-AMERICAN > 60; GFR NON-AFRICAN AMERICAN > 60
[2017-10-21] MEDS ORDERED: Albuterol-Ipratrop 3 mg / 0.5 (3 ml) UD IH PRN (08:07)
[2017-10-21] MEDS: MethylPREDNISolone 40 mg Vial IVP SCH ×3 (09:51→21:10)
[2017-10-21] MEDS: guaiFENesin-DM 600-30 mg ER Tab PO SCH ×2 (09:51→18:03)
--- NOTE | 2017-10-21 12:19 | CARD ---
APPROVED REPORT Date of service: 10/20/2017 EKG Measurement Heart [id number] <Conclusion> Normal sinus rhythm
[2017-10-21] MEDS: Albuterol-Ipratrop 3 mg / 0.5 (3 ml) UD IH SCH ×3 (13:16→20:17)
--- NOTE | 2017-10-21 14:44 | US ---
Date of service: 10/21/2017 HISTORY: Nausea and vomiting COMPARISON: None. TECHNIQUE: Grayscale imaging was performed. FINDINGS: LIVER: Measures 13.0 cm. Normal echogenicity of the liver parenchyma. No mass. No intrahepatic bile duct dilatation. GALLBLADDER: There are no gallstones, wall thickening or pericholecystic fluid. The sonographic Márquez's sign is negative. COMMON BILE DUCT: Measures 5.4 mm. No stones. No dilatation. PANCREAS: Normal in size and echotexture. No mass. No ductal dilatation. RIGHT KIDNEY: Measures 11.9cm. Normal echogenicity. No calculus, mass, or hydronephrosis. LEFT KIDNEY: Measures 12.6cm. Normal echogenicity. No calculus, mass, or hydronephrosis. SPLEEN: Normal in size and contour. No mass. AORTA: No aneurysmal dilatation. IVC: Unremarkable. OTHER FINDINGS: None. IMPRESSION: Normal examination.
[2017-10-22] MEDS: Albuterol-Ipratrop 3 mg / 0.5 (3 ml) UD IH SCH ×3 (01:53→08:11)
[2017-10-22] MEDS: Pantoprazole 40 mg EC Tab PO SCH (05:37)
[2017-10-22 06:57] LABS: EOS % 0.1 % (1.5-5.0); GRAN # 9.68 (1.4-6.5); GRAN % 74.8 % (50.0-68.0); HEMOGLOBIN 13.9 g/dL (14.0-18.0); LYMPH # 2.2 (1.2-3.4); LYMPH % 17.2 % (22.0-35.0); MEAN CELL VOLUME 81.6 fl (80.0-105.0); MEAN CORPUSCULAR HEMOGLOBIN 28.4 pg (25.0-35.0); MEAN CORPUSCULAR HGB CONC 34.8 g/dl (31.0-37.0); MEAN PLATELET VOLUME 9.6 fl (7.0-11.0); MONO % 7.9 % (1.0-6.0); RBC 4.89 10^6/uL (3.5-6.1); RED CELL DISTRIBUTION WIDTH 14.1 % (11.5-14.5); WHITE BLOOD COUNT 12.9 10^3/ul (4.5-11.0)
[2017-10-22 07:18] LABS: ALB/GLOB RATIO 1.3 (1.1-1.8); ALBUMIN 4.2 g/dL (3.0-4.8); ALT/SGPT 51 U/L (7-56); AST/SGOT 23 U/L (17-59); BLOOD UREA NITROGEN 17 mg/dL (7-21); CALCIUM 9.1 mg/dL (8.4-10.5); GFR AFRICAN-AMERICAN > 60; GFR NON-AFRICAN AMERICAN > 60
[2017-10-22 07:54] VITALS: BP 119/70; PULSE 54; RESP 18; TEMP 97.6; O2SAT 95
[2017-10-22] MEDS: guaiFENesin-DM 600-30 mg ER Tab PO SCH (09:01)
[2017-10-22] MEDS: MethylPREDNISolone 40 mg Vial IVP SCH (09:01)
--- NOTE | 2017-10-22 17:00 | CP.PCM.DIS ---
<Blayne Gold - Last Filed: 10/22/17 16:47> Provider - Provider Date of Admission: 10/21/17 09:32 Attending physician: Radha Ramirez MD Primary care physician: NO PRIMARY CARE PROVIDER Time Spent in preparation of Discharge (in minutes): 45 Diagnosis - Discharge Diagnosis (1) Smoking 1/2 pack a day or less Status: Chronic Hospital Course - Lab Results Lab Results: Most Recent Lab Values WBC 12.9 10^3/ul (4.5-11.0) H 10/22/17 06:00 RBC 4.89 10^6/uL (3.5-6.1) 10/22/17 06:00 Hgb 13.9 g/dL (14.0-18.0) L 10/22/17 06:00 Hct 39.9 % (42.0-52.0) L 10/22/17 06:00 MCV 81.6 fl (80.0-105.0) 10/22/17 06:00 MCH 28.4 pg (25.0-35.0) 10/22/17 06:00 MCHC 34.8 g/dl (31.0-37.0) 10/22/17 06:00 RDW 14.1 % (11.5-14.5) 10/22/17 06:00 Plt Count 216 10^3/uL (120.0-450.0) 10/22/17 06:00 MPV 9.6 fl (7.0-11.0) 10/22/17 06:00 Gran % 74.8 % (50.0-68.0) H 10/22/17 06:00 Lymph % (Auto) 17.2 % (22.0-35.0) L 10/22/17 06:00 Grant % (Auto) 7.9 % (1.0-6.0) H 10/22/17 06:00 Eos % (Auto) 0.1 % (1.5-5.0) L 10/22/17 06:00 Baso % (Auto) 0.0 % (0.0-3.0) 10/22/17 06:00 Gran # 9.68 (1.4-6.5) H 10/22/17 06:00 Lymph # (Auto) 2.2 (1.2-3.4) 10/22/17 06:00 Grant # (Auto) 1.0 (0.1-0.6) H 10/22/17 06:00 Eos # (Auto) 0.0 (0.0-0.7) 10/22/17 06:00 Baso # (Auto) 0.00 K/mm3 (0.0-2.0) 10/22/17 06:00 Neutrophils % (Manual) 94 % (50.0-70.0) H 10/20/17 16:40 Lymphocytes % (Manual) 4 % (22.0-35.0) L 10/20/17 16:40 Monocytes % (Manual) 2 % (1.0-6.0) 10/20/17 16:40 Platelet Evaluation Normal (NORMAL) 10/20/17 16:40 Sodium 139 mmol/L (132-148) 10/22/17 06:00 Potassium 4.3 mmol/L (3.6-5.0) 10/22/17 06:00 Chloride 103 mmol/L (98-107) 10/22/17 06:00 Carbon Dioxide 23 mmol/L (21-33) 10/22/17 06:00 Anion Gap 17 (10-20) 10/22/17 06:00 BUN 17 mg/dL (7-21) 10/22/17 06:00 Creatinine 0.8 mg/dl (0.8-1.5) 10/22/17 06:00 Est GFR ( Amer) > 60 10/22/17 06:00 Est GFR (Non-Af Amer) > 60 10/22/17 06:00 Random Glucose 138 mg/dL (70-110) H 10/22/17 06:00 Calcium 9.1 mg/dL (8.4-10.5) 10/22/17 06:00 Total Bilirubin 0.3 mg/dL (0.2-1.3) 10/22/17 06:00 AST 23 U/L (17-59) 10/22/17 06:00 ALT 51 U/L (7-56) 10/22/17 06:00 Alkaline Phosphatase 76 U/L (38-126) 10/22/17 06:00 Total Protein 7.5 g/dL (5.8-8.3) 10/22/17 06:00 Albumin 4.2 g/dL (3.0-4.8) 10/22/17 06:00 Globulin 3.3 gm/dL 10/22/17 06:00 Albumin/Globulin Ratio 1.3 (1.1-1.8) 10/22/17 06:00 - Hospital Course Hospital Course: 37 year old male with past medical history of active tobacco use and asthma presented with asthma exacerbation. In the ED, patient received xopenex 0.63 mg q6 and 0.63 mg q2 PRN and solumedrol 40 IV BID. CXR was negative. Patient's breathing improved the next day but patient vomited a few times beginning with dinner and into the next inpatient day, likely secondary to nicotine withdrawal. Patient received Zofran and Protonix. Patient transitioned to duonebs after his tachycardia resolved and his steroids were tapered to 30 mg IV solumedrol BID. Patient's wheezing improved. Leukocytosis likely secondary to IV steroids. Nausea improved slightly. Abdominal U/S was ordered and was normal. Patient's diet was advanced from clear liquid diet to regular diet, which patient managed without complaint. Patient was counselled on smoking cessation. Discharge Exam - Head Exam Head Exam: ATRAUMATIC, NORMAL INSPECTION, NORMOCEPHALIC - Eye Exam Eye Exam: EOMI, Normal appearance, PERRL Pupil Exam: NORMAL ACCOMODATION, PERRL - ENT Exam ENT Exam: Mucous Membranes Moist, Normal Exam - Neck Exam Neck exam: Normal Inspection - Respiratory Exam Respiratory Exam: Wheezes (much improved), NORMAL BREATHING PATTERN. absent: Chest Wall Tenderness, Decreased Breath Sounds, Respiratory Distress, Stridor - Cardiovascular Exam Cardiovascular Exam: REGULAR RHYTHM, +S1, +S2. absent: JVD - GI/Abdominal Exam GI & Abdominal Exam: Normal Bowel Sounds, Soft, Unremarkable. absent: Tenderness - Neurological Exam Neurological exam: Alert, CN II-XII Intact, Normal Gait, Oriented x3 - Psychiatric Exam Psychiatric exam: Normal Affect, Normal Mood - Skin Skin Exam: Dry, Intact, Normal Color, Warm Discharge Plan - Discharge Medications Prescriptions: Albuterol HFA [Ventolin HFA 90 mcg/actuation (8 g)] 2 puff IH [id number] PRN #1 puff PRN Reason: Wheezing Albuterol 0.083% [Albuterol 0.083% Inhal Kianna (2.5 mg/3 ml) UD] 3 ml NEB Q6 PRN # 1 neb PRN Reason: Shortness Of Breath Methylprednisolone [Medrol Dose Pack (21 tabs)] See Taper PO DAILY #21 mg - Follow Up Plan Condition: STABLE Disposition: HOME/ ROUTINE Instructions: Asthma, Adult (DC) Additional Instructions: 1.Please refrain from smoking due to effect it has on health and asthma. Please consider nicotine gum or patch to help curb desire. 2.Please follow up with the [facility] health clinic next week on October 29 at 3 pm to establish care with a PMD. 3.please discuss with your PMD in order to establish care with a pulmonoloigist Referrals: PCP,NO [Primary Care Provider] - <Radha Ramirez - Last Filed: 10/23/17 08:11> Provider - Provider Date of Admission: 10/21/17 09:32 Attending physician: Radha Ramirez MD Primary care physician: NO PRIMARY CARE PROVIDER Hospital Course - Lab Results Lab Results: Most Recent Lab Values WBC 12.9 10^3/ul (4.5-11.0) H 10/22/17 06:00 RBC 4.89 10^6/uL (3.5-6.1) 10/22/17 06:00 Hgb 13.9 g/dL (14.0-18.0) L 10/22/17 06:00 Hct 39.9 % (42.0-52.0) L 10/22/17 06:00 MCV 81.6 fl (80.0-105.0) 10/22/17 06:00 MCH 28.4 pg (25.0-35.0) 10/22/17 06:00 MCHC 34.8 g/dl (31.0-37.0) 10/22/17 06:00 RDW 14.1 % (11.5-14.5) 10/22/17 06:00 Plt Count 216 10^3/uL (120.0-450.0) 10/22/17 06:00 MPV 9.6 fl (7.0-11.0) 10/22/17 06:00 Gran % 74.8 % (50.0-68.0) H 10/22/17 06:00 Lymph % (Auto) 17.2 % (22.0-35.0) L 10/22/17 06:00 Grant % (Auto) 7.9 % (1.0-6.0) H 10/22/17 06:00 Eos % (Auto) 0.1 % (1.5-5.0) L 10/22/17 06:00 Baso % (Auto) 0.0 % (0.0-3.0) 10/22/17 06:00 Gran # 9.68 (1.4-6.5) H 10/22/17 06:00 Lymph # (Auto) 2.2 (1.2-3.4) 10/22/17 06:00 Grant # (Auto) 1.0 (0.1-0.6) H 10/22/17 06:00 Eos # (Auto) 0.0 (0.0-0.7) 10/22/17 06:00 Baso # (Auto) 0.00 K/mm3 (0.0-2.0) 10/22/17 06:00 Neutrophils % (Manual) 94 % (50.0-70.0) H 10/20/17 16:40 Lymphocytes % (Manual) 4 % (22.0-35.0) L 10/20/17 16:40 Monocytes % (Manual) 2 % (1.0-6.0) 10/20/17 16:40 Platelet Evaluation Normal (NORMAL) 10/20/17 16:40 Sodium 139 mmol/L (132-148) 10/22/17 06:00 Potassium 4.3 mmol/L (3.6-5.0) 10/22/17 06:00 Chloride 103 mmol/L (98-107) 10/22/17 06:00 Carbon Dioxide 23 mmol/L (21-33) 10/22/17 06:00 Anion Gap 17 (10-20) 10/22/17 06:00 BUN 17 mg/dL (7-21) 10/22/17 06:00 Creatinine 0.8 mg/dl (0.8-1.5) 10/22/17 06:00 Est GFR ( Amer) > 60 10/22/17 06:00 Est GFR (Non-Af Amer) > 60 10/22/17 06:00 Random Glucose 138 mg/dL (70-110) H 10/22/17 06:00 Calcium 9.1 mg/dL (8.4-10.5) 10/22/17 06:00 Total Bilirubin 0.3 mg/dL (0.2-1.3) 10/22/17 06:00 AST 23 U/L (17-59) 10/22/17 06:00 ALT 51 U/L (7-56) 10/22/17 06:00 Alkaline Phosphatase 76 U/L (38-126) 10/22/17 06:00 Total Protein 7.5 g/dL (5.8-8.3) 10/22/17 06:00 Albumin 4.2 g/dL (3.0-4.8) 10/22/17 06:00 Globulin 3.3 gm/dL 10/22/17 06:00 Albumin/Globulin Ratio 1.3 (1.1-1.8) 10/22/17 06:00 Attending/Attestation - Attestation I have personally seen and examined this patient.: Yes I have fully participated in the care of the patient.: Yes I have reviewed all pertinent clinical information, including history, physical exam and plan: Yes Notes (Text): 10/22/17 37 year old male with past medical history of active tobacco use and asthma presented with asthma exacerbation. He was started on duonebs and iv solumedrol. His wheezing improved and his steroids were tapered. He was counselled on smoking cessation. Leukocytosis was likely secondary to iv steroids and also improved. Yesterday he had nauseas/vomiting which has resolved. US abdomen was negative. ALT was slightly elevated initially but also improved. Patient is discharged home to follow up at [facility] on at 3pm. Discharged on medrol dosepack. Continue with albuterol prn. Counselled on smoking cessation. Radha Ramirez MD Hospitalist.
== END 2017-10-22 13:58 | disposition home or self-care (01) | DRG 96 ==
LOC: ED 10:26 → ERH 16:28 → 3RNO 17:52 → OBSVTOIN 10-21 09:32
PROVIDERS: ADMIT Hospitalist; ATTEND Internal Medicine
DX: J45.901 Unspecified asthma with (acute) exacerbation (principal); J44.9 Chronic obstructive pulmonary disease, unspecified; N18.9 Chronic kidney disease, unspecified; F17.213 Nicotine dependence, cigarettes, with withdrawal; D72.829 Elevated white blood cell count, unspecified; T38.0X5A Adverse effect of glucocorticoids and synthetic analogues, initial encounter; K21.9 Gastro-esophageal reflux disease without esophagitis; Z87.01 Personal history of pneumonia (recurrent); Z87.442 Personal history of urinary calculi